=== PATIENT | male | born 1965 | race African-American/Black ===

== ENCOUNTER 2020-06-01 13:32 | Inpatient (IN) | payer OTHER ==
--- NOTE | 2020-06-01 16:23 | BHS.RME ---
Substance Use & Tx History - Substance Use History Alcohol Substance amount: 2pints of vodka,4 of 12 ozs of beer Frequency of use: Daily Substance route: Oral Date of Last Use: 06/01/20 Cocaine-Crack Substance amount: 100$ Frequency of use: Daily Substance route: Smoking Date of Last Use: 06/01/20 Marijuana/Hashish Substance amount: 10$ Frequency of use: Once a month Substance route: Smoking Date of Last Use: 06/01/20 - Last Treatment Date of last treatment: 2015 in [place] Where was last treatment: Detox Physical/Psych/Mental Status - Behavior Eye Contact: Normal - Cooperativeness Cooperativeness: Cooperative - Thinking Thought Processes: Logical Thought content: Future oriented - Physical Health Problems Is patient presently having any pain?: No Does patient presently have any injuries (include location): No Does patient currently have a fever: No CIWA Nausea/Vomitin Muscle Tremors: 3 Anxiety: 3 Agitation: 3 Paroxysmal Sweats: No Perspiration Orientation: 0-Oriented Tacttile Disturbances: 1-Very Mild Itch/Numbness Auditory Disturbances: 0-None Visual Disturbances: 0-None Headache: 2-Mild CIWA-Ar Total Score: 14
--- NOTE | 2020-06-01 16:34 | HP ---
CIWA Score Nausea/Vomitin Muscle Tremors: 3 Anxiety: 3 Agitation: 3 Paroxysmal Sweats: No Perspiration Orientation: 0-Oriented Tacttile Disturbances: 1-Very Mild Itch/Numbness Auditory Disturbances: 0-None Visual Disturbances: 0-None Headache: 2-Mild CIWA-Ar Total Score: 14 - Admission Criteria OASAS Guidelines: Admission for Medically Managed Detox: Requires at least one of the followin. CIWA greater than 12 2. Seizures within the past 24 hours 3. Delirium tremens within the past 24 hours 4. Hallucinations within the past 24 hours 5. Acute intervention needed for co occurring medical disorder 6. Acute intervention needed for co occurring psychiatric disorder 7. Severe withdrawal that cannot be handled at a lower level of care (continued vomiting, continued diarrhea, abnormal vital signs) requiring intravenous medication and/or fluids 8. Admitting History and Physical - Admission Chief Complaint: i need help to stop drinking alcohol and drug History of Present Illness: this 54 years oldmale with alcohol,cocaine,marijuana dependence seeking detox, withdrawal symptom,first time to this facility History Source: Patient Limitations to Obtaining History: No Limitations - Past Surgical History Past Surgical History: Yes: None - Smoking History Smoking history: Current every day smoker Have you smoked in the past 12 months: Yes Aproximately how many cigarettes per day: 10 - Alcohol/Substance Use Hx Alcohol Use: Yes History of Substance Use: reports: Cocaine, Marijuana Date of Last Use: 06/01/20 - Social History Usual Living Arrangement: Yes: With Spouse Do you think of yourself as: Straight/Heterosexual ADL: Support Services Occupation: unemployed now History of Recent Travel: No Other Social History: unemployed,no legal issue Admission ROS S - HPI Chief Complaint: i barbara help to stop drinking alcohol,cocaine and drugs Allergies/Adverse Reactions: Allergies Allergy/AdvReac Type Severity Reaction Status Date / Time No Known Allergies Allergy Verified 06/01/20 16:43 History of Present Illness: this 54 years old male with alcohol,cocaine,marijuana dependence seeking detox,withdrawal symptom first time to this facility last detox 6 years ago in [place] nicotine dependence unemployed,positive eye home health aid,no legal issue longest sobriety 2 year plan for iop,aa meeting Exam Limitations: No Limitations - Ebola screening Have you traveled outside of the country in the last 21 days: No Have you had contact with anyone from an Ebola affected area: No Have you been sick,other than usual withdrawal symptoms: No Do you have a fever: No - Review of Systems Constitutional: Loss of Appetite, Malaise, Night Sweats, Changes in sleep EENT: reports: Tearing, Nose Congestion Respiratory: reports: No Symptoms reported Cardiac: reports: No Symptoms Reported GI: reports: Nausea, Vomiting, Abdominal cramping : reports: No Symptoms Reported Musculoskeletal: reports: Back Pain, Muscle Pain Integumentary: reports: Dryness Neuro: reports: Tremors Endocrine: reports: No Symptoms Reported Hematology: reports: No Symptoms Reported Psychiatric: reports: No Sypmtoms Reported, Judgement Intact, Mood/Affect Appropiate, Orientated x3 Other Systems: Reviewed and Negative Patient History - Patient Medical History Hx Anemia: No Hx Asthma: No Hx Chronic Obstructive Pulmonary Disease (COPD): No Hx Cancer: No Hx Cardiac Disorders: No Hx Congestive Heart Failure: No Hx Hypertension: No Hx Hypercholesterolemia: No Hx Pacemaker: No HX Cerebrovascular Accident: No Hx Seizures: No Hx Dementia: No Hx Diabetes: No Hx Gastrointestinal Disorders: No Hx Liver Disease: No Hx Genitourinary Disorders: No Hx Sexually Transmitted Disorders: No Hx Renal Disease (ESRD): No Hx Thyroid Disease: No Hx Human Immunodeficiency Virus (HIV): No (last 04/2020 negative) Hx Hepatitis C: No Hx Depression: No Hx Suicide Attempt: No Hx Bipolar Disorder: No Hx Schizophrenia: No Other Medical History: no suicidal,no homicidal - Patient Surgical History Past Surgical History: No - PPD History Previous Implant?: Yes Documented Results: Negative w/o proof Implanted On Prior R Admission?: No PPD to be Administered?: Yes - Smoking Cessation Smoking history: Current every day smoker Have you smoked in the past 12 months: Yes Aproximately how many cigarettes per day: 10 Cigars Per Day: 0 Hx Chewing Tobacco Use: No Initiated information on smoking cessation: Yes 'Breaking Loose' booklet given: 06/01/20 - Substance & Tx. History Hx Alcohol Use: Yes Hx Substance Use: Yes Substance Use Type: Alcohol, Cocaine, Marijuana Hx Substance Use Treatment: Yes (in [place] 6 years ago) - Substances abused Alcohol Substance route: Oral Frequency: Daily Amount used: 2pints of vodka/2 of 12 ozs of beer Age of first use: 23 Date of last use: 06/01/20 Crack Substance route: Smoking Frequency: Daily Amount used: 100$ Age of first use: 23 Date of last use: 06/01/20 Marijuana/Hashish Substance route: Smoking Frequency: 1-3 times last 30 days Amount used: 10$ Age of first use: 23 Date of last use: 05/30/20 Admission Physical Exam [facility] - Vital Signs Vital Signs: t97.9,p 85,r 18,bp 101/64 pulse ox 98 - Physical General Appearance: Yes: Moderate Distress, Tremorous, Irritable, Anxious HEENTM: Yes: Normal ENT Inspection, CARRI, Pharynx Normal Respiratory: Yes: Within Normal Limits, Lungs Clear, Normal Breath Sounds Neck: Yes: Within Normal Limits, Supple, Trachea in good position Breast: Yes: Within Normal Limits Cardiology: Yes: Within Normal Limits, Regular Rhythm, Regular Rate, S1, S2 Abdominal: Yes: Within Normal Limits, Normal Bowel Sounds, Non Tender, Flat, Soft Genitourinary: Yes: Within Normal Limits Back: Yes: Muscle Spasm Musculoskeletal: Yes: Back pain, Muscle Pain Extremities: Yes: Tremors Neurological: Yes: asbestos wire finisher II-XII NML intact, Fully Oriented, Alert, Motor Strength 5/5 Integumentary: Yes: Dry Lymphatic: Yes: Within Normal Limits - Diagnostic (1) Alcohol dependence with uncomplicated withdrawal Current Visit: Yes Status: Acute (2) Cocaine dependence Current Visit: Yes Status: Acute (3) Cannabis abuse Current Visit: Yes Status: Acute (4) Nicotine dependence Current Visit: Yes Status: Acute Cleared for Admission [facility] - Detox or Rehab [facility] Level of Care: Medically Managed Detox Regimen/Protocol: Librium Inpatient Rehab Admission - Rehab Decision to Admit Inpatient rehab admission?: No
[2020-06-01] MEDS ORDERED: ACETAMINOPHEN 325 MG TABLET (FP) PO PRN ×2 (16:43)
[2020-06-01] MEDS ORDERED: ONDANSETRON *ODT* 4 MG TABLET SL ONE (16:43)
[2020-06-01] MEDS ORDERED: METHOCARBAMOL 500 MG TABLET PO PRN (16:43)
[2020-06-01] MEDS ORDERED: chlordiazePOXIDE HCL 25 MG CAPSULE PO PRN (16:43)
[2020-06-01] MEDS ORDERED: MAGNESIUM HYDROX 2400MG/30ML ORAL SUSPENSION 30 ML CUP PO PRN (16:43)
[2020-06-01] MEDS ORDERED: BISMUTH SUBSALICYLATE 524 MG/30 ML UD PO PRN (16:43)
[2020-06-01] MEDS ORDERED: MAG HYDROX/AL HYDROX/SIMETH 30 ML UNIT-DOSE CUP PO PRN (16:43)
[2020-06-01] MEDS ORDERED: MAGNESIUM CITRATE 300 ML BOTTLE PO PRN (16:43)
[2020-06-01] MEDS ORDERED: NICOTINE POLACRILEX 2 MG GUM BUC PRN (16:43)
[2020-06-01] MEDS ORDERED: MENTHOL/PHENOL 1 EACH UD MM PRN (16:43)
[2020-06-01 16:59] VITALS: BMI 24.3
[2020-06-01] MEDS ORDERED: TUBERCULIN PPD 5 TU/0.1ML VIAL ID ONE (17:59)
[2020-06-01] MEDS: hydrOXYzine PAMOATE 25 MG CAPSULE (FP) PO SCH ×2 (18:07→22:17)
[2020-06-01] MEDS ORDERED: cloNIDine HCL 0.1 MG TABLET PO ONE (18:33)
[2020-06-01] MEDS: THIAMINE HCL 100 MG TABLET (FP) PO SCH (22:17)
[2020-06-01] MEDS: MELATONIN 5 MG TABLETS PO SCH (22:17)
[2020-06-01] MEDS: chlordiazePOXIDE HCL 25 MG CAPSULE PO SCH (22:17)
[2020-06-02] MEDS: hydrOXYzine PAMOATE 25 MG CAPSULE (FP) PO SCH ×5 (06:48→22:17)
[2020-06-02] MEDS: chlordiazePOXIDE HCL 25 MG CAPSULE PO SCH ×4 (06:48→22:17)
[2020-06-02] MEDS: NICOTINE 21 MG/24 HOURS TOPICAL PATCH TD SCH (10:38)
[2020-06-02] MEDS: NICOTINE 7 MG/24 HOURS TOPICAL PATCH TD SCH (10:38)
[2020-06-02] MEDS: PRENATAL VITAMINS W/ FOLIC ACID TABLET (FP) PO SCH (10:38)
[2020-06-02 12:03] LABS: HEMATOCRIT 42.5 % (35.4-49); HEMOGLOBIN 14.1 GM/dL (11.7-16.9); MCH 31.1 pg (25.7-33.7); MCHC 33.2 g/dl (32.0-35.9); MEAN CELL VOLUME 93.5 fl (80-96); MEAN PLT VOLUME 8.3 fl (7.5-11.1); PLATELET COUNT 267 K/MM3 (134-434); RBC 4.55 M/mm3 (4.00-5.60); WHITE BLOOD COUNT 6.8 K/mm3 (4.0-10.0)
[2020-06-02 12:15] LABS: ALBUMIN 2.9 g/dl (3.4-5.0); BILIRUBIN,TOTAL 0.6 mg/dL (0.2-1); BLOOD UREA NITROGEN 10.5 mg/dL (7-18); CALCIUM 8.7 mg/dL (8.5-10.1); CREATININE 1.1 mg/dL (0.55-1.3); POTASSIUM 4.1 mmol/L (3.5-5.1)
[2020-06-02 12:23] LABS: SICKLE CELL SCREEN NEGATIVE (NEGATIVE)
--- NOTE | 2020-06-02 15:21 | PN ---
[facility] CIWA - CIWA Score Nausea/Vomitin-Mild Nausea/No Vomiting Muscle Tremors: 2 Anxiety: 3 Agitation: 2 Paroxysmal Sweats: 3 Orientation: 0-Oriented Tacttile Disturbances: 0-None Auditory Disturbances: 0-None Visual Disturbances: 0-None Headache: 0-None Present CIWA-Ar Total Score: 11 [facility] Progress Note (SOAP) Subjective: Fatigue, interrupted sleep Objective: 06/02/20 15:12 Last Vital Signs Temp Pulse Resp BP Pulse Ox 97.8 F 73 18 135/84 98 06/02/20 12:50 06/02/20 12:50 06/02/20 12:50 06/02/20 12:50 06/02/20 12:50 Elevated b/p noted, denies htn Laboratory Tests 06/02/20 06/02/20 06/02/20 07:25 07:25 07:25 WBC 6.8 RBC 4.55 Hgb 14.1 Hct 42.5 MCV 93.5 MCH 31.1 MCHC 33.2 RDW 14.0 Plt Count 267 MPV 8.3 Sickle Cell Screen Negative Sodium 136 Potassium 4.1 Chloride 102 Carbon Dioxide 30 Anion Gap 5 L BUN 10.5 Creatinine 1.1 Est GFR (CKD-EPI)AfAm 88.36 Est GFR (CKD-EPI)NonAf 76.24 Random Glucose 384 H Calcium 8.7 Total Bilirubin 0.6 AST 8 L ALT 13 Alkaline Phosphatase 75 Total Protein 6.0 L Albumin 2.9 L Syphilis Serology Reactive A* RPR Titer 06/02/20 07:25 WBC RBC Hgb Hct MCV MCH MCHC RDW Plt Count MPV Sickle Cell Screen Sodium Potassium Chloride Carbon Dioxide Anion Gap BUN Creatinine Est GFR (CKD-EPI)AfAm Est GFR (CKD-EPI)NonAf Random Glucose Calcium Total Bilirubin AST ALT Alkaline Phosphatase Total Protein Albumin Syphilis Serology RPR Titer Reactive 1:1 H Labs reviewed: serum glucose 384 (high), albumin 2.9 (low), RPR Reactive 1:1 Assessment: 06/02/20 15:14 Withdrawal sxs Noted with hyperglycemia, hypoalbuminemia and abnormal RPR test result Plan: Continue detox Encourage PO water intake Hyperglycemia: repeat fasting glucose, send A1c, start FS glucose TID AC with SS insulin coverage, change ensure to glucerna bid, consider diabetic diet if patient allows Hypoalbuminemia: encourage diet Abnormal RPR test result: patient uncooperative at this time, stating he wants to sleep. Need to follow up with patient when he's cooperative
[2020-06-02] MEDS: INSULIN SLIDING SCALE (NOVOLOG) 1 VIAL SQ SCH (17:11)
[2020-06-02 21:49] LABS: URINE APPEARANCE CLEAR; URINE BILIRUBIN NEGATIVE (NEGATIVE); URINE COLOR YELLOW; URINE GLUCOSE (UA) 3+ (NEGATIVE); URINE KETONE NEGATIVE (NEGATIVE); URINE LEUK ESTERASE NEGATIVE (NEGATIVE); URINE NITRITE NEGATIVE (NEGATIVE); URINE PROTEIN NEGATIVE (NEGATIVE); URINE UROBILINOGEN 0.2 mg/dL (0.2-1.0)
[2020-06-02] MEDS: THIAMINE HCL 100 MG TABLET (FP) PO SCH (22:17)
[2020-06-02] MEDS: MELATONIN 5 MG TABLETS PO SCH (22:17)
[2020-06-02] MEDS ORDERED: INSULIN (NOVOLOG) ASPART 100 UNITS/ML 10ML VIAL SQ ONE (22:32)
--- NOTE | 2020-06-02 22:38 | PN ---
[facility] Progress Note Note: Patient's blood sugar is 507mg/dL. Patient is asymptomatic. Vital Signs Temperature 97.7 F 06/02/20 20:47 Pulse Rate 90 06/02/20 20:47 Respiratory Rate 18 06/02/20 20:47 Blood Pressure 131/70 06/02/20 20:47 O2 Sat by Pulse Oximetry (%) 97 06/02/20 20:47 06/02/20 06/02/20 06/02/20 07:25 07:25 07:25 WBC 6.8 RBC 4.55 Hgb 14.1 Hct 42.5 MCV 93.5 MCH 31.1 MCHC 33.2 RDW 14.0 Plt Count 267 MPV 8.3 Sickle Cell Screen Negative Sodium 136 Potassium 4.1 Chloride 102 Carbon Dioxide 30 Anion Gap 5 L BUN 10.5 Creatinine 1.1 Est GFR (CKD-EPI)AfAm 88.36 Est GFR (CKD-EPI)NonAf 76.24 POC Glucometer Random Glucose 384 H Calcium 8.7 Total Bilirubin 0.6 AST 8 L ALT 13 Alkaline Phosphatase 75 Total Protein 6.0 L Albumin 2.9 L Urine Color Urine Appearance Urine pH Ur Specific [place] Urine Protein Urine Glucose (UA) Urine Ketones Urine Blood Urine Nitrite Urine Bilirubin Urine Urobilinogen Ur Leukocyte Esterase Syphilis Serology Reactive A* RPR Titer 06/02/20 06/02/20 06/02/20 07:25 17:09 17:14 WBC RBC Hgb Hct MCV MCH MCHC RDW Plt Count MPV Sickle Cell Screen Sodium Potassium Chloride Carbon Dioxide Anion Gap BUN Creatinine Est GFR (CKD-EPI)AfAm Est GFR (CKD-EPI)NonAf POC Glucometer > 600 Random Glucose Calcium Total Bilirubin AST ALT Alkaline Phosphatase Total Protein Albumin Urine Color Yellow Urine Appearance Clear Urine pH 6.0 Ur Specific [place] 1.025 Urine Protein Negative Urine Glucose (UA) 3+ H Urine Ketones Negative Urine Blood Negative Urine Nitrite Negative Urine Bilirubin Negative Urine Urobilinogen 0.2 Ur Leukocyte Esterase Negative Syphilis Serology RPR Titer Reactive 1:1 H 06/02/20 06/02/20 20:52 22:26 WBC RBC Hgb Hct MCV MCH MCHC RDW Plt Count MPV Sickle Cell Screen Sodium Potassium Chloride Carbon Dioxide Anion Gap BUN Creatinine Est GFR (CKD-EPI)AfAm Est GFR (CKD-EPI)NonAf POC Glucometer [phone] Random Glucose Calcium Total Bilirubin AST ALT Alkaline Phosphatase Total Protein Albumin Urine Color Urine Appearance Urine pH Ur Specific [place] Urine Protein Urine Glucose (UA) Urine Ketones Urine Blood Urine Nitrite Urine Bilirubin Urine Urobilinogen Ur Leukocyte Esterase Syphilis Serology RPR Titer Action: Insulin Novolog 8 units SQ ordered
[2020-06-03] MEDS: chlordiazePOXIDE HCL 25 MG CAPSULE PO SCH ×4 (07:05→22:12)
[2020-06-03] MEDS: hydrOXYzine PAMOATE 25 MG CAPSULE (FP) PO SCH ×5 (07:05→22:12)
[2020-06-03] MEDS ORDERED: INSULIN (NOVOLOG) ASPART 100 UNITS/ML 10ML VIAL ONE ×2 (07:32→11:49)
[2020-06-03] MEDS: INSULIN SLIDING SCALE (NOVOLOG) 1 VIAL SQ SCH ×2 (08:01→11:44)
--- NOTE | 2020-06-03 09:30 | EKG ---
Test Reason : Blood Pressure : / mmHG Vent. Rate : 063 BPM Atrial Rate : 063 BPM P-R Int : 138 ms QRS Dur : 096 ms QT Int : 426 ms P-R-T Axes : 044 -34 -11 degrees QTc Int : 435 ms SINUS RHYTHM WITH PREMATURE ATRIAL COMPLEXES LEFT AXIS DEVIATION MODERATE VOLTAGE CRITERIA FOR LVH, MAY BE NORMAL VARIANT Nonspecific T changes ABNORMAL ECG NO PREVIOUS ECGS AVAILABLE Confirmed by Shannan Kapoor ([id number]) on 06/03/2020 9:30:21 AM Referred By: Confirmed By:Shannan Kapoor
[2020-06-03] MEDS: NICOTINE 21 MG/24 HOURS TOPICAL PATCH TD SCH (11:07)
[2020-06-03] MEDS: NICOTINE 7 MG/24 HOURS TOPICAL PATCH TD SCH (11:07)
[2020-06-03] MEDS: PRENATAL VITAMINS W/ FOLIC ACID TABLET (FP) PO SCH (11:09)
--- NOTE | 2020-06-03 14:04 | PN ---
S CIWA - CIWA Score Nausea/Vomitin-No Nausea/No Vomiting Muscle Tremors: 4-Moderate,w/Arms Extend Anxiety: 4-Mod. Anxious/Guarded Agitation: 2 Paroxysmal Sweats: 2 Orientation: 0-Oriented Tacttile Disturbances: 0-None Auditory Disturbances: 0-None Visual Disturbances: 0-None Headache: 0-None Present CIWA-Ar Total Score: 12 [facility] Progress Note (SOAP) Subjective: Reports "Am better" but c/o: sweats shakes anxiety Objective: 06/03/20 14:01 Vital Signs - 24 hr 06/02/20 06/02/20 06/03/20 17:11 20:47 06:14 Temperature 97.1 F L 97.7 F 97.8 F Pulse Rate 74 90 79 Respiratory 18 18 18 Rate Blood Pressure 138/81 131/70 123/91 O2 Sat by Pulse 97 96 Oximetry (%) 06/03/20 09:53 Temperature 98.4 F Pulse Rate 80 Respiratory 16 Rate Blood Pressure 113/80 O2 Sat by Pulse 98 Oximetry (%) Laboratory Tests 06/02/20 06/02/20 06/02/20 07:25 07:25 07:25 WBC 6.8 RBC 4.55 Hgb 14.1 Hct 42.5 MCV 93.5 MCH 31.1 MCHC 33.2 RDW 14.0 Plt Count 267 MPV 8.3 Sickle Cell Screen Negative Sodium 136 Potassium 4.1 Chloride 102 Carbon Dioxide 30 Anion Gap 5 L BUN 10.5 Creatinine 1.1 Est GFR (CKD-EPI)AfAm 88.36 Est GFR (CKD-EPI)NonAf 76.24 POC Glucometer Random Glucose 384 H Fasting Glucose Hemoglobin A1c % Calcium 8.7 Total Bilirubin 0.6 AST 8 L ALT 13 Alkaline Phosphatase 75 Total Protein 6.0 L Albumin 2.9 L Urine Color Urine Appearance Urine pH Ur Specific [place] Urine Protein Urine Glucose (UA) Urine Ketones Urine Blood Urine Nitrite Urine Bilirubin Urine Urobilinogen Ur Leukocyte Esterase Syphilis Serology Reactive A* RPR Titer 06/02/20 06/02/20 06/02/20 07:25 17:09 17:14 WBC RBC Hgb Hct MCV MCH MCHC RDW Plt Count MPV Sickle Cell Screen Sodium Potassium Chloride Carbon Dioxide Anion Gap BUN Creatinine Est GFR (CKD-EPI)AfAm Est GFR (CKD-EPI)NonAf POC Glucometer > 600 Random Glucose Fasting Glucose Hemoglobin A1c % Calcium Total Bilirubin AST ALT Alkaline Phosphatase Total Protein Albumin Urine Color Yellow Urine Appearance Clear Urine pH 6.0 Ur Specific [place] 1.025 Urine Protein Negative Urine Glucose (UA) 3+ H Urine Ketones Negative Urine Blood Negative Urine Nitrite Negative Urine Bilirubin Negative Urine Urobilinogen 0.2 Ur Leukocyte Esterase Negative Syphilis Serology RPR Titer Reactive 1:1 H 06/02/20 06/02/20 06/03/20 20:52 22:26 07:04 WBC RBC Hgb Hct MCV MCH MCHC RDW Plt Count MPV Sickle Cell Screen Sodium Potassium Chloride Carbon Dioxide Anion Gap BUN Creatinine Est GFR (CKD-EPI)AfAm Est GFR (CKD-EPI)NonAf POC Glucometer [phone] Random Glucose Fasting Glucose Hemoglobin A1c % Calcium Total Bilirubin AST ALT Alkaline Phosphatase Total Protein Albumin Urine Color Urine Appearance Urine pH Ur Specific [place] Urine Protein Urine Glucose (UA) Urine Ketones Urine Blood Urine Nitrite Urine Bilirubin Urine Urobilinogen Ur Leukocyte Esterase Syphilis Serology RPR Titer 06/03/20 06/03/20 08:15 08:15 WBC RBC Hgb Hct MCV MCH MCHC RDW Plt Count MPV Sickle Cell Screen Sodium Potassium Chloride Carbon Dioxide Anion Gap BUN Creatinine Est GFR (CKD-EPI)AfAm Est GFR (CKD-EPI)NonAf POC Glucometer Random Glucose Fasting Glucose 461 H* Hemoglobin A1c % 13.9 H Calcium Total Bilirubin AST ALT Alkaline Phosphatase Total Protein Albumin Urine Color Urine Appearance Urine pH Ur Specific [place] Urine Protein Urine Glucose (UA) Urine Ketones Urine Blood Urine Nitrite Urine Bilirubin Urine Urobilinogen Ur Leukocyte Esterase Syphilis Serology RPR Titer Covid-19 result pending HgbA1C is 13.9 (Pt is a poor historian and denied all Past medical Hx RPR 1:1 Pt is new to this facility and uncooperative with staff when asked about past infection. Alert o x 3 nad oob ambulating with steady gait Assessment: 06/03/20 14:03 withdrawal sx poor historian poor self health management skills Plan: cont detox increase po fluids maintain safety Change BGM ACHS monitoring/continue sliding scale Dietary consult follow up with pt and Hx of RPR and primary care provider.
[2020-06-03] MEDS: IBUPROFEN 400 MG TABLET (FP) PO PRN (15:43)
[2020-06-03] MEDS ORDERED: INSULIN SLIDING SCALE (NOVOLOG) 1 VIAL SQ SCH (16:30)
[2020-06-03] MEDS ORDERED: INSULIN (NOVOLOG) ASPART 100 UNITS/ML 10ML VIAL SQ ONE (17:01)
[2020-06-03] MEDS ORDERED: cloNIDine HCL 0.1 MG TABLET PO ONE (21:58)
[2020-06-03] MEDS ORDERED: INSULIN (LEVEMIR) 100 UNITS/ML UNITS SQ SCH (22:00)
[2020-06-03] MEDS: THIAMINE HCL 100 MG TABLET (FP) PO SCH (22:11)
[2020-06-03] MEDS: MELATONIN 5 MG TABLETS PO SCH (22:12)
[2020-06-04] MEDS ORDERED: chlordiazePOXIDE HCL 10 MG CAPSULE PO PRN
[2020-06-04] MEDS: chlordiazePOXIDE HCL 10 MG CAPSULE PO SCH ×4 (06:37→22:01)
[2020-06-04] MEDS: hydrOXYzine PAMOATE 25 MG CAPSULE (FP) PO SCH ×5 (06:37→21:44)
[2020-06-04] MEDS ORDERED: INSULIN (NOVOLOG) ASPART 100 UNITS/ML 10ML VIAL ONE ×4 (06:39→22:37)
[2020-06-04] MEDS ORDERED: INSULIN SLIDING SCALE (NOVOLOG) 1 VIAL SQ SCH (07:00)
--- NOTE | 2020-06-04 09:43 | PN ---
S CIWA - CIWA Score Nausea/Vomitin-No Nausea/No Vomiting Muscle Tremors: 3 Anxiety: 2 Agitation: 0-Normal Activity Paroxysmal Sweats: No Perspiration Orientation: 0-Oriented Tacttile Disturbances: 0-None Auditory Disturbances: 0-None Visual Disturbances: 0-None Headache: 0-None Present CIWA-Ar Total Score: 5 [facility] Progress Note (SOAP) Subjective: Reports decreased withdrawal sx, medication effective. Slight anxiety Objective: 06/04/20 09:40 Vital Signs - 24 hr 06/03/20 06/03/20 06/03/20 09:53 12:49 21:49 Temperature 98.4 F 98.2 F 98.0 F Pulse Rate 80 82 84 Respiratory 16 18 18 Rate Blood Pressure 113/80 112/70 142/107 H O2 Sat by Pulse 98 95 97 Oximetry (%) 06/03/20 06/04/20 23:53 06:19 Temperature 98.4 F Pulse Rate 73 74 Respiratory 18 Rate Blood Pressure 131/79 121/84 O2 Sat by Pulse 96 Oximetry (%) Laboratory Tests 06/01/20 06/02/20 06/02/20 23:40 07:25 07:25 WBC 6.8 RBC 4.55 Hgb 14.1 Hct 42.5 MCV 93.5 MCH 31.1 MCHC 33.2 RDW 14.0 Plt Count 267 MPV 8.3 Sickle Cell Screen Negative Sodium Potassium Chloride Carbon Dioxide Anion Gap BUN Creatinine Est GFR (CKD-EPI)AfAm Est GFR (CKD-EPI)NonAf POC Glucometer Random Glucose Fasting Glucose Hemoglobin A1c % Calcium Total Bilirubin AST ALT Alkaline Phosphatase Total Protein Albumin Urine Color Urine Appearance Urine pH Ur Specific [place] Urine Protein Urine Glucose (UA) Urine Ketones Urine Blood Urine Nitrite Urine Bilirubin Urine Urobilinogen Ur Leukocyte Esterase Syphilis Serology Reactive A* RPR Titer COVID-19 (TIARA) Not detected 06/02/20 06/02/20 06/02/20 07:25 07:25 17:09 WBC RBC Hgb Hct MCV MCH MCHC RDW Plt Count MPV Sickle Cell Screen Sodium 136 Potassium 4.1 Chloride 102 Carbon Dioxide 30 Anion Gap 5 L BUN 10.5 Creatinine 1.1 Est GFR (CKD-EPI)AfAm 88.36 Est GFR (CKD-EPI)NonAf 76.24 POC Glucometer > 600 Random Glucose 384 H Fasting Glucose Hemoglobin A1c % Calcium 8.7 Total Bilirubin 0.6 AST 8 L ALT 13 Alkaline Phosphatase 75 Total Protein 6.0 L Albumin 2.9 L Urine Color Urine Appearance Urine pH Ur Specific [place] Urine Protein Urine Glucose (UA) Urine Ketones Urine Blood Urine Nitrite Urine Bilirubin Urine Urobilinogen Ur Leukocyte Esterase Syphilis Serology RPR Titer Reactive 1:1 H COVID-19 (TIARA) 06/02/20 06/02/20 06/02/20 17:14 20:52 22:26 WBC RBC Hgb Hct MCV MCH MCHC RDW Plt Count MPV Sickle Cell Screen Sodium Potassium Chloride Carbon Dioxide Anion Gap BUN Creatinine Est GFR (CKD-EPI)AfAm Est GFR (CKD-EPI)NonAf POC Glucometer [phone] Random Glucose Fasting Glucose Hemoglobin A1c % Calcium Total Bilirubin AST ALT Alkaline Phosphatase Total Protein Albumin Urine Color Yellow Urine Appearance Clear Urine pH 6.0 Ur Specific [place] 1.025 Urine Protein Negative Urine Glucose (UA) 3+ H Urine Ketones Negative Urine Blood Negative Urine Nitrite Negative Urine Bilirubin Negative Urine Urobilinogen 0.2 Ur Leukocyte Esterase Negative Syphilis Serology RPR Titer COVID-19 (TIARA) 06/03/20 06/03/20 06/03/20 07:04 08:15 08:15 WBC RBC Hgb Hct MCV MCH MCHC RDW Plt Count MPV Sickle Cell Screen Sodium Potassium Chloride Carbon Dioxide Anion Gap BUN Creatinine Est GFR (CKD-EPI)AfAm Est GFR (CKD-EPI)NonAf POC Glucometer 467 Random Glucose Fasting Glucose 461 H* Hemoglobin A1c % 13.9 H Calcium Total Bilirubin AST ALT Alkaline Phosphatase Total Protein Albumin Urine Color Urine Appearance Urine pH Ur Specific [place] Urine Protein Urine Glucose (UA) Urine Ketones Urine Blood Urine Nitrite Urine Bilirubin Urine Urobilinogen Ur Leukocyte Esterase Syphilis Serology RPR Titer COVID-19 (TIARA) 06/03/20 06/03/20 06/04/20 16:52 21:05 06:36 WBC RBC Hgb Hct MCV MCH MCHC RDW Plt Count MPV Sickle Cell Screen Sodium Potassium Chloride Carbon Dioxide Anion Gap BUN Creatinine Est GFR (CKD-EPI)AfAm Est GFR (CKD-EPI)NonAf POC Glucometer [phone] Random Glucose Fasting Glucose Hemoglobin A1c % Calcium Total Bilirubin AST ALT Alkaline Phosphatase Total Protein Albumin Urine Color Urine Appearance Urine pH Ur Specific [place] Urine Protein Urine Glucose (UA) Urine Ketones Urine Blood Urine Nitrite Urine Bilirubin Urine Urobilinogen Ur Leukocyte Esterase Syphilis Serology RPR Titer COVID-19 (TIARA) Today pt reports he now remembers was "treated for syphilis in the past, years ago". Unable to recollect exact year and location. Still maintains has never been dx with DM. Assessment: 06/04/20 19:38 mild withdrawal sx uncontrolled DM Plan: cont detox increase po fluids maintain safety D/w pt about seeing primary care again which he reports he has been to a doctor in [place] and the need to follow up after detox treatment.
[2020-06-04 10:26] LABS: BLOOD UREA NITROGEN 17.1 mg/dL (7-18); CALCIUM 9.4 mg/dL (8.5-10.1); CREATININE 1.2 mg/dL (0.55-1.3); POTASSIUM 4.2 mmol/L (3.5-5.1)
[2020-06-04] MEDS: NICOTINE 21 MG/24 HOURS TOPICAL PATCH TD SCH (10:38)
[2020-06-04] MEDS: PRENATAL VITAMINS W/ FOLIC ACID TABLET (FP) PO SCH (10:38)
[2020-06-04] MEDS: NICOTINE 7 MG/24 HOURS TOPICAL PATCH TD SCH (10:38)
[2020-06-04] MEDS: INSULIN SLIDING SCALE (NOVOLOG) 1 VIAL SQ SCH ×3 (11:53→21:42)
[2020-06-04] MEDS: IBUPROFEN 400 MG TABLET (FP) PO PRN (16:57)
[2020-06-04] MEDS ORDERED: INSULIN (LEVEMIR) 100 UNITS/ML UNITS SQ SCH ×2 (17:52→22:00)
[2020-06-04] MEDS: THIAMINE HCL 100 MG TABLET (FP) PO SCH (21:44)
[2020-06-04] MEDS: MELATONIN 5 MG TABLETS PO SCH (21:44)
[2020-06-05] MEDS ORDERED: chlordiazePOXIDE HCL 10 MG CAPSULE PO SCH (05:00)
[2020-06-05] MEDS: hydrOXYzine PAMOATE 25 MG CAPSULE (FP) PO SCH ×2 (06:35→10:00)
[2020-06-05] MEDS: INSULIN SLIDING SCALE (NOVOLOG) 1 VIAL SQ SCH (06:38)
[2020-06-05] MEDS ORDERED: INSULIN (NOVOLOG) ASPART 100 UNITS/ML 10ML VIAL ONE (06:38)
--- NOTE | 2020-06-05 08:59 | DS ---
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 Extensive discussion with patient re: his blood sugar and the need to follow up with his PCP and Director Index after discharge today. Pt now reports he has a PCP at [facility] on [address] [place] [address]. Pt met with counselor, Ms Adan Jerez and has been referred to [place], [place]. 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 Diabetic teaching and instruction for proper use of insulin pen provided to patient. Pertinent Past History: HTN(on norvasc-noncompliant) DM(pt denies on admission0 - Physical Exam Results Vital Signs: Vital Signs Temperature 98.2 F 06/05/20 06:00 Pulse Rate 79 06/05/20 06:00 Respiratory Rate 18 06/05/20 06:00 Blood Pressure 147/94 06/05/20 06:00 O2 Sat by Pulse Oximetry (%) 97 06/05/20 06:00 alert o x 3 nad oob ambulating with steady gait cardiac:s1 s2,rrr lungs:ctab abdomen:soft,+bs,nt,nd extremities:no edema,skin intact. Pertinent Admission Physical Exam Findings: Laboratory Tests 06/01/20 06/02/20 06/02/20 23:40 07:25 07:25 WBC 6.8 RBC 4.55 Hgb 14.1 Hct 42.5 MCV 93.5 MCH 31.1 MCHC 33.2 RDW 14.0 Plt Count 267 MPV 8.3 Sickle Cell Screen Negative Sodium Potassium Chloride Carbon Dioxide Anion Gap BUN Creatinine Est GFR (CKD-EPI)AfAm Est GFR (CKD-EPI)NonAf POC Glucometer Random Glucose Fasting Glucose Hemoglobin A1c % Calcium Total Bilirubin AST ALT Alkaline Phosphatase Total Protein Albumin Beta-Hydroxybutyrate Urine Color Urine Appearance Urine pH Ur Specific [place] Urine Protein Urine Glucose (UA) Urine Ketones Urine Blood Urine Nitrite Urine Bilirubin Urine Urobilinogen Ur Leukocyte Esterase Syphilis Serology Reactive A* RPR Titer COVID-19 (TIARA) Not detected 06/02/20 06/02/20 06/02/20 07:25 07:25 17:09 WBC RBC Hgb Hct MCV MCH MCHC RDW Plt Count MPV Sickle Cell Screen Sodium 136 Potassium 4.1 Chloride 102 Carbon Dioxide 30 Anion Gap 5 L BUN 10.5 Creatinine 1.1 Est GFR (CKD-EPI)AfAm 88.36 Est GFR (CKD-EPI)NonAf 76.24 POC Glucometer > 600 Random Glucose 384 H Fasting Glucose Hemoglobin A1c % Calcium 8.7 Total Bilirubin 0.6 AST 8 L ALT 13 Alkaline Phosphatase 75 Total Protein 6.0 L Albumin 2.9 L Beta-Hydroxybutyrate Urine Color Urine Appearance Urine pH Ur Specific [place] Urine Protein Urine Glucose (UA) Urine Ketones Urine Blood Urine Nitrite Urine Bilirubin Urine Urobilinogen Ur Leukocyte Esterase Syphilis Serology RPR Titer Reactive 1:1 H COVID-19 (TIARA) 06/02/20 06/02/20 06/02/20 17:14 20:52 22:26 WBC RBC Hgb Hct MCV MCH MCHC RDW Plt Count MPV Sickle Cell Screen Sodium Potassium Chloride Carbon Dioxide Anion Gap BUN Creatinine Est GFR (CKD-EPI)AfAm Est GFR (CKD-EPI)NonAf POC Glucometer 426 507 Random Glucose Fasting Glucose Hemoglobin A1c % Calcium Total Bilirubin AST ALT Alkaline Phosphatase Total Protein Albumin Beta-Hydroxybutyrate Urine Color Yellow Urine Appearance Clear Urine pH 6.0 Ur Specific [place] 1.025 Urine Protein Negative Urine Glucose (UA) 3+ H Urine Ketones Negative Urine Blood Negative Urine Nitrite Negative Urine Bilirubin Negative Urine Urobilinogen 0.2 Ur Leukocyte Esterase Negative Syphilis Serology RPR Titer COVID-19 (TIARA) 06/03/20 06/03/20 06/03/20 07:04 08:15 08:15 WBC RBC Hgb Hct MCV MCH MCHC RDW Plt Count MPV Sickle Cell Screen Sodium Potassium Chloride Carbon Dioxide Anion Gap BUN Creatinine Est GFR (CKD-EPI)AfAm Est GFR (CKD-EPI)NonAf POC Glucometer 467 Random Glucose Fasting Glucose 461 H* Hemoglobin A1c % 13.9 H Calcium Total Bilirubin AST ALT Alkaline Phosphatase Total Protein Albumin Beta-Hydroxybutyrate Urine Color Urine Appearance Urine pH Ur Specific [place] Urine Protein Urine Glucose (UA) Urine Ketones Urine Blood Urine Nitrite Urine Bilirubin Urine Urobilinogen Ur Leukocyte Esterase Syphilis Serology RPR Titer COVID-19 (TIARA) 06/03/20 06/03/20 06/04/20 16:52 21:05 06:36 WBC RBC Hgb Hct MCV MCH MCHC RDW Plt Count MPV Sickle Cell Screen Sodium Potassium Chloride Carbon Dioxide Anion Gap BUN Creatinine Est GFR (CKD-EPI)AfAm Est GFR (CKD-EPI)NonAf POC Glucometer [phone] Random Glucose Fasting Glucose Hemoglobin A1c % Calcium Total Bilirubin AST ALT Alkaline Phosphatase Total Protein Albumin Beta-Hydroxybutyrate Urine Color Urine Appearance Urine pH Ur Specific [place] Urine Protein Urine Glucose (UA) Urine Ketones Urine Blood Urine Nitrite Urine Bilirubin Urine Urobilinogen Ur Leukocyte Esterase Syphilis Serology RPR Titer COVID-19 (TIARA) 06/04/20 06/04/20 06/04/20 07:50 11:48 16:52 WBC RBC Hgb Hct MCV MCH MCHC RDW Plt Count MPV Sickle Cell Screen Sodium 136 Potassium 4.2 Chloride 98 Carbon Dioxide 29 Anion Gap 8 BUN 17.1 Creatinine 1.2 Est GFR (CKD-EPI)AfAm 79.53 Est GFR (CKD-EPI)NonAf 68.62 POC Glucometer 463 470 Random Glucose 432 H* Fasting Glucose Hemoglobin A1c % Calcium 9.4 Total Bilirubin AST ALT Alkaline Phosphatase Total Protein Albumin Beta-Hydroxybutyrate 1.6 Urine Color Urine Appearance Urine pH Ur Specific [place] Urine Protein Urine Glucose (UA) Urine Ketones Urine Blood Urine Nitrite Urine Bilirubin Urine Urobilinogen Ur Leukocyte Esterase Syphilis Serology RPR Titer COVID-19 (TIARA) 06/04/20 06/05/20 21:41 06:34 WBC RBC Hgb Hct MCV MCH MCHC RDW Plt Count MPV Sickle Cell Screen Sodium Potassium Chloride Carbon Dioxide Anion Gap BUN Creatinine Est GFR (CKD-EPI)AfAm Est GFR (CKD-EPI)NonAf POC Glucometer 478 345 Random Glucose Fasting Glucose Hemoglobin A1c % Calcium Total Bilirubin AST ALT Alkaline Phosphatase Total Protein Albumin Beta-Hydroxybutyrate Urine Color Urine Appearance Urine pH Ur Specific [place] Urine Protein Urine Glucose (UA) Urine Ketones Urine Blood Urine Nitrite Urine Bilirubin Urine Urobilinogen Ur Leukocyte Esterase Syphilis Serology RPR Titer COVID-19 (TIARA) - Treatment Hospital Course: Detox Protocol Followed, Detoxed Safely, Responded well, Discharged Condition Good, Rehab Referral Accepted Patient has Accepted a Rehab Referral to: [place], [place] - Medication Discharge Medications: Ambulatory Orders Alcohol Antiseptic Pads [Alcohol Swabs] 1 each TP DAILY #30 med..pad 06/05/20 Amlodipine Besylate 10 mg PO DAILY #14 tablet 06/05/20 Insulin (Levemir) [Levemir Vial] 12 units SQ HS #1 units 06/05/20 Lancets 1 each MC DAILY #30 each 06/05/20 Miscellaneous Medical Supply [Glucometer Device] 1 each SQ ASDIR #1 kit 06/05/20 Miscellaneous Medical Supply [Glucometer Test Strips #100] 1 each SQ ASDIR #1 box 06/05/20 Pen Needle, Diabetic [1St Tier Unifine Pentips Plus] 1 each MC DAILY #30 dis.needle 06/05/20 - Diagnosis (1) History of hypertension Status: Chronic (2) Alcohol dependence with uncomplicated withdrawal Status: Acute (3) Cannabis abuse Status: Acute (4) Cocaine dependence Status: Acute Qualifiers: Substance use status: uncomplicated Qualified Code(s): F14.20 - Cocaine dependence, uncomplicated (5) Nicotine dependence Status: Acute Qualifiers: Nicotine product type: cigarettes Substance use status: in withdrawal Qualified Code(s): F17.213 - Nicotine dependence, cigarettes, with withdrawal (6) DM type 2 (diabetes mellitus, type 2) Status: Chronic Qualifiers: Diabetes mellitus long term care social worker insulin use: without nursing home use (7) History of noncompliance with medical treatment Status: Chronic - AMA Did Patient Leave Against Medical Advice: No
[2020-06-05] MEDS: PRENATAL VITAMINS W/ FOLIC ACID TABLET (FP) PO SCH (09:59)
[2020-06-05] MEDS: NICOTINE 7 MG/24 HOURS TOPICAL PATCH TD SCH (10:00)
[2020-06-05] MEDS: NICOTINE 21 MG/24 HOURS TOPICAL PATCH TD SCH (10:00)
[2020-06-05] MEDS ORDERED: amLODIPine BESYLATE 10 MG TABLET (FP) PO SCH (10:00)
[2020-06-05 10:47] VITALS: BP 123/82; PULSE 86; TEMP 97.7
[2020-06-06] MEDS ORDERED: chlordiazePOXIDE HCL 10 MG CAPSULE PO ONE (05:00)
== END 2020-06-05 10:10 | disposition home or self-care (01) | DRG 774 ==
LOC: YASAS 13:32 → Y5N DETOX 16:56
PROVIDERS: ADMIT Allergy & Immunology; ATTEND Allergy & Immunology
PROC: HZ2ZZZZ Detoxification Services for Substance Abuse Treatment (ICD-10-PCS; principal; 2020-06-01)
DX: F10.230 Alcohol dependence with withdrawal, uncomplicated (principal); F14.20 Cocaine dependence, uncomplicated; F12.10 Cannabis abuse, uncomplicated; F17.210 Nicotine dependence, cigarettes, uncomplicated; E88.09 Other disorders of plasma-protein metabolism, not elsewhere classified; I10 Essential (primary) hypertension; E11.65 Type 2 diabetes mellitus with hyperglycemia; Z79.84 Long term (current) use of oral hypoglycemic drugs; Z91.19 Patient's noncompliance with other medical treatment and regimen; Z86.19 Personal history of other infectious and parasitic diseases
CPT/HCPCS: 36415; 80048; 80053; 81003; 82010; 82947; 82962; 83036; 85027; 85660; 86593; 86780; 93005; 93010; J0735; U0003

== ENCOUNTER 2020-07-01 15:30 | Inpatient (IN) | payer OTHER ==
--- NOTE | 2020-07-01 17:00 | HP ---
CIWA Score Nausea/Vomitin-No Nausea/No Vomiting (CIWA 11--but meets criteria for coexisting medical condition (uncontrolled diabetes)) Muscle Tremors: 1-None Visible, but [place] Anxiety: 5 Agitation: 1-Slight > Activity Paroxysmal Sweats: No Perspiration Orientation: 2-Disoriented Date<2 days Tacttile Disturbances: 0-None Auditory Disturbances: 0-None Visual Disturbances: 0-None Headache: 2-Mild CIWA-Ar Total Score: 11 - Admission Criteria OASAS Guidelines: Admission for Medically Managed Detox: Requires at least one of the followin. CIWA greater than 12 2. Seizures within the past 24 hours 3. Delirium tremens within the past 24 hours 4. Hallucinations within the past 24 hours 5. Acute intervention needed for co occurring medical disorder 6. Acute intervention needed for co occurring psychiatric disorder 7. Severe withdrawal that cannot be handled at a lower level of care (continued vomiting, continued diarrhea, abnormal vital signs) requiring intravenous medication and/or fluids 8. Admitting History and Physical - Admission Chief Complaint: Alcohol detox History of Present Illness: CC: alcohol detox HPI: Mika Rosas is a 54 year old with recent diagnosis of diabetes, who presents for alcohol detox. He was admitted at [facility] from 06/01/20 - 06/05/20, for alcohol detox, was found to have elevated blood sugars (to 500s) and was advised to follow up with his primary care physician on discharge. He states that he did not follow up, and has not been taking Metformin (which was prescribed on his discharge). 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 Substance: Cocaine Amount: $100/day Date of Last use: Today (07/01/20) Date of first use: 30s Substance: Marijuana Amount: 1 joint/week Substance: Nicotine Amount: 1/2 pack per day Date of Last use: Today (07/01/20) PMH: Diabetes, hypertension PSH: None Psych: Depression, not on meds Social: Friend Legal: None History Source: Patient Limitations to Obtaining History: No Limitations - Past Surgical History Past Surgical History: Yes: None - Smoking History Smoking history: Current every day smoker Have you smoked in the past 12 months: Yes Aproximately how many cigarettes per day: 10 - Alcohol/Substance Use Hx Alcohol Use: Yes History of Substance Use: reports: Cocaine, Marijuana Date of Last Use: 06/01/20 - Social History Usual Living Arrangement: Yes: Alone ADL: Support Services Occupation: unemployed now History of Recent Travel: No Admission ROS S - HPI Chief Complaint: alcohol detox Allergies/Adverse Reactions: Allergies Allergy/AdvReac Type Severity Reaction Status Date / Time No Known Allergies Allergy Verified 07/01/20 17:16 Exam Limitations: No Limitations - Ebola screening Have you traveled outside of the country in the last 21 days: No Have you had contact with anyone from an Ebola affected area: No Have you been sick,other than usual withdrawal symptoms: No Do you have a fever: No - Review of Systems Constitutional: Unintentional Wgt. Loss EENT: denies: Eye Pain, Ear Pain, Nose Congestion Respiratory: denies: Cough, Shortness of Breath Cardiac: denies: Chest Pain GI: denies: Constipated, Diarrhea : reports: No Symptoms Reported Musculoskeletal: reports: No Symptoms Reported, Joint Pain (pain in bilateral knees) Integumentary: reports: No Symptoms Reported. denies: Rash Neuro: reports: Headache. denies: Seizure Endocrine: reports: No Symptoms Reported Hematology: reports: No Symptoms Reported Psychiatric: reports: Orientated x3 Patient History - Patient Medical History Hx Anemia: No Hx Asthma: No Hx Chronic Obstructive Pulmonary Disease (COPD): No Hx Cancer: No Hx Cardiac Disorders: No Hx Congestive Heart Failure: No Hx Hypertension: No Hx Hypercholesterolemia: No Hx Pacemaker: No HX Cerebrovascular Accident: No Hx Seizures: No Hx Dementia: No Hx Diabetes: No Hx Gastrointestinal Disorders: No Hx Liver Disease: No Hx Genitourinary Disorders: No Hx Sexually Transmitted Disorders: No Hx Renal Disease (ESRD): No Hx Thyroid Disease: No Hx Human Immunodeficiency Virus (HIV): No (last 04/2020 negative) Hx Hepatitis C: No Hx Depression: No Hx Suicide Attempt: No Hx Bipolar Disorder: No Hx Schizophrenia: No - Patient Surgical History Past Surgical History: No Hx Neurologic Surgery: No Hx Cataract Extraction: No Hx Cardiac Surgery: No Hx Lung Surgery: No Hx Breast Surgery: No Hx Breast Biopsy: No Hx Abdominal Surgery: No Hx Appendectomy: No Hx Cholecystectomy: No Hx Genitourinary Surgery: No Hx Section: No Hx Orthopedic Surgery: No Anesthesia Reaction: No - PPD History Date: 06/03/20 - Smoking Cessation Smoking history: Current every day smoker Have you smoked in the past 12 months: Yes Aproximately how many cigarettes per day: 10 Cigars Per Day: 0 Hx Chewing Tobacco Use: No Initiated information on smoking cessation: Yes 'Breaking Loose' booklet given: 07/01/20 - Substances abused Alcohol Substance route: Oral Frequency: Daily Amount used: liquor- 4 pts, beer- 2 six pk Age of first use: 25 Date of last use: 07/01/20 Cocaine Substance route: Inhalation Frequency: Daily Amount used: $60 worth Age of first use: 38 Date of last use: 06/30/20 Admission Physical Exam BHS - Physical General Appearance: Yes: Within Normal Limits, No Apparent Distress HEENTM: Yes: Within Normal Limits, Hearing grossly Normal, Normocephalic, Normal Voice, CARRI Respiratory: Yes: Within Normal Limits, Lungs Clear, Normal Breath Sounds, No Respiratory Distress Neck: Yes: Within Normal Limits Breast: Yes: Breast Exam Deferred Cardiology: Yes: Within Normal Limits, Regular Rhythm, Regular Rate, S1, S2 Abdominal: Yes: Within Normal Limits, Flat, Soft, Guarding, Other (diffuse tenderness to palpation) Genitourinary: Yes: Within Normal Limits Back: Yes: Within Normal Limits, Normal Inspection Musculoskeletal: Yes: Within Normal Limits, full range of Motion, Gait Steady Extremities: Yes: Within Normal Limits, Other (small healing cuts on shins from reported trip up the stairs 3 days ago) Neurological: Yes: Within Normal Limits, Alert, Normal Mood/Affect, Normal Response Integumentary: Yes: Within Normal Limits, Normal Color, Dry, Warm - Diagnostic (1) Alcohol dependence with uncomplicated withdrawal Current Visit: Yes Status: Acute (2) Cannabis abuse Current Visit: Yes Status: Acute (3) Cocaine dependence Current Visit: Yes Status: Acute Qualifiers: Substance use status: uncomplicated Qualified Code(s): F14.20 - Cocaine dependence, uncomplicated (4) Nicotine dependence Current Visit: Yes Status: Acute Qualifiers: Nicotine product type: cigarettes Substance use status: in withdrawal Qualified Code(s): F17.213 - Nicotine dependence, cigarettes, with withdrawal (5) DM type 2 (diabetes mellitus, type 2) Current Visit: No Status: Chronic Qualifiers: Diabetes mellitus senior living insulin use: without senior living use (6) History of hypertension Current Visit: No Status: Chronic (7) History of noncompliance with medical treatment Current Visit: No Status: Chronic Cleared for Admission BHS - Detox or Rehab [facility] Level of Care: Medically Managed Screened but not Admitted - Documentation of Visit Screened but not Admitted: No Breathalyzer - Breathalyzer Breathalyzer: 0 Urine Drug Screen - Test Device Lot number: [id number] Expiration date: 07/15/21 - Control Is test valid?: No - Results Drug screen NEGATIVE: No Urine drug screen results: GARRET-Cocaine, BZO-Benzodiazepines Inpatient Rehab Admission - Rehab Decision to Admit Inpatient rehab admission?: No
[2020-07-01 17:30] VITALS: BMI 23.6
[2020-07-01] MEDS ORDERED: MAG HYDROX/AL HYDROX/SIMETH 30 ML UNIT-DOSE CUP PO PRN (18:21)
[2020-07-01] MEDS ORDERED: ACETAMINOPHEN 325 MG TABLET (FP) PO PRN ×2 (18:21)
[2020-07-01] MEDS ORDERED: METHOCARBAMOL 500 MG TABLET PO PRN (18:21)
[2020-07-01] MEDS ORDERED: MAGNESIUM CITRATE 300 ML BOTTLE PO PRN (18:21)
[2020-07-01] MEDS ORDERED: MAGNESIUM HYDROX 2400MG/30ML ORAL SUSPENSION 30 ML CUP PO PRN (18:21)
[2020-07-01] MEDS ORDERED: BISMUTH SUBSALICYLATE 524 MG/30 ML UD PO PRN (18:21)
[2020-07-01] MEDS ORDERED: NICOTINE POLACRILEX 4 MG GUM BUC PRN (18:21)
[2020-07-01] MEDS ORDERED: IBUPROFEN 400 MG TABLET (FP) PO PRN (18:21)
[2020-07-01] MEDS ORDERED: MENTHOL/PHENOL 1 EACH UD MM PRN (18:21)
[2020-07-01] MEDS ORDERED: ONDANSETRON *ODT* 4 MG TABLET SL ONE (18:21)
--- NOTE | 2020-07-01 18:33 | PN ---
Teaching Attending Note Name of Resident: Eve Mccormick ATTENDING PHYSICIAN STATEMENT I saw and evaluated the patient. I reviewed the resident's note and discussed the case with the resident. I agree with the resident's findings and plan as documented. SUBJECTIVE: 54 y.o. male requesting detox from alcohol use PMHX : DM non- compliant w/ meds . OBJECTIVE: wnwd Vital Signs - 24 hr 07/01/20 17:17 Temperature 97.3 F L Pulse Rate 77 Respiratory 19 Rate Blood Pressure 140/91 ASSESSMENT AND PLAN: AUD - valium detox
[2020-07-01] MEDS: NICOTINE 21 MG/24 HOURS TOPICAL PATCH TD SCH (19:17)
[2020-07-01] MEDS: MELATONIN 5 MG TABLETS PO SCH (21:31)
[2020-07-01] MEDS: diazePAM 5 MG TABLET PO SCH (21:31)
[2020-07-01] MEDS: THIAMINE HCL 100 MG TABLET (FP) PO SCH (21:31)
[2020-07-01] MEDS: INSULIN SLIDING SCALE (NOVOLOG) 1 VIAL SQ SCH (21:32)
[2020-07-01] MEDS ORDERED: hydrOXYzine PAMOATE 25 MG CAPSULE (FP) PO SCH (22:00)
[2020-07-02] MEDS: diazePAM 5 MG TABLET PO SCH ×3 (06:28→21:49)
[2020-07-02] MEDS: INSULIN SLIDING SCALE (NOVOLOG) 1 VIAL SQ SCH ×4 (08:05→21:33)
--- NOTE | 2020-07-02 10:12 | PN ---
S CIWA - CIWA Score Nausea/Vomitin-No Nausea/No Vomiting Muscle Tremors: 3 Anxiety: 2 Agitation: 3 Paroxysmal Sweats: 2 Orientation: 0-Oriented Tacttile Disturbances: 0-None Auditory Disturbances: 0-None Visual Disturbances: 0-None Headache: 0-None Present CIWA-Ar Total Score: 10 S Progress Note (SOAP) Subjective: sweats shakes nausea Objective: 07/02/20 10:12 Vital Signs Temperature 98.2 F 07/02/20 06:45 Pulse Rate 88 07/02/20 06:45 Respiratory Rate 18 07/02/20 06:45 Blood Pressure 128/83 07/02/20 06:45 O2 Sat by Pulse Oximetry (%) 97 07/02/20 06:45 Laboratory Tests 07/01/20 07/01/20 07/01/20 18:33 19:13 21:27 POC Glucometer 263 263 227 07/02/20 06:27 POC Glucometer 273 rest of labs pending aaox3 lying in bed no acute distress Assessment: 07/02/20 10:12 withdrawals Plan: continue detox
[2020-07-02] MEDS: NICOTINE 21 MG/24 HOURS TOPICAL PATCH TD SCH (10:21)
[2020-07-02] MEDS: amLODIPine BESYLATE 10 MG TABLET (FP) PO SCH (10:21)
[2020-07-02] MEDS: PRENATAL VITAMINS W/ FOLIC ACID TABLET (FP) PO SCH (10:21)
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
[2020-07-02] MEDS: diazePAM 5 MG TABLET PO PRN (10:58)
[2020-07-02 13:01] LABS: HEMATOCRIT 43.6 % (35.4-49); HEMOGLOBIN 14.4 GM/dL (11.7-16.9); MCH 31.5 pg (25.7-33.7); MEAN CELL VOLUME 95.5 fl (80-96); MEAN PLT VOLUME 8.9 fl (7.5-11.1); PLATELET COUNT 220 K/MM3 (134-434); RBC 4.56 M/mm3 (4.00-5.60); RDW 14.7 % (11.9-15.9); WHITE BLOOD COUNT 6.4 K/mm3 (4.0-10.0)
[2020-07-02 13:13] LABS: CALCIUM 8.6 mg/dL (8.5-10.1); POTASSIUM 4.4 mmol/L (3.5-5.1)
[2020-07-02 13:19] LABS: ALBUMIN 3.2 g/dl (3.4-5.0); BILIRUBIN,TOTAL 0.8 mg/dL (0.2-1); BLOOD UREA NITROGEN 14.5 mg/dL (7-18); TOT PROT 6.2 g/dl (6.4-8.2)
[2020-07-02] MEDS: THIAMINE HCL 100 MG TABLET (FP) PO SCH (21:49)
[2020-07-02] MEDS: MELATONIN 5 MG TABLETS PO SCH (21:50)
[2020-07-03] MEDS: diazePAM 5 MG TABLET PO SCH ×2 (06:30→17:35)
[2020-07-03] MEDS: INSULIN SLIDING SCALE (NOVOLOG) 1 VIAL SQ SCH ×4 (07:56→21:25)
--- NOTE | 2020-07-03 10:24 | PN ---
S CIWA - CIWA Score Nausea/Vomitin-No Nausea/No Vomiting Muscle Tremors: None Anxiety: 1-Mildly Anxious Agitation: 1-Slight > Activity Paroxysmal Sweats: No Perspiration Orientation: 0-Oriented Tacttile Disturbances: 0-None Auditory Disturbances: 0-None Visual Disturbances: 0-None Headache: 0-None Present CIWA-Ar Total Score: 2 BHS Progress Note (SOAP) Subjective: feeling much better little anxiety Objective: 07/03/20 12:10 Vital Signs Temperature 97.1 F L 07/03/20 08:35 Pulse Rate 71 07/03/20 08:35 Respiratory Rate 18 07/03/20 08:35 Blood Pressure 151/93 07/03/20 08:35 O2 Sat by Pulse Oximetry (%) 97 07/03/20 05:45 aaox3 ambulating no acute distress Assessment: 07/03/20 12:10 mild withdrawals Plan: continue detox d/c in am
[2020-07-03] MEDS: amLODIPine BESYLATE 10 MG TABLET (FP) PO SCH (10:53)
[2020-07-03] MEDS: PRENATAL VITAMINS W/ FOLIC ACID TABLET (FP) PO SCH (10:53)
[2020-07-03] MEDS: NICOTINE 21 MG/24 HOURS TOPICAL PATCH TD SCH (10:53)
[2020-07-03] MEDS ORDERED: INSULIN SLIDING SCALE (NOVOLOG) 1 VIAL SQ ONE (11:44)
[2020-07-03] MEDS: THIAMINE HCL 100 MG TABLET (FP) PO SCH (21:56)
[2020-07-03] MEDS: MELATONIN 5 MG TABLETS PO SCH (21:56)
[2020-07-03] MEDS: diazePAM 5 MG TABLET PO PRN (21:58)
[2020-07-04] MEDS ORDERED: diazePAM 5 MG TABLET PO ONE (06:00)
[2020-07-04 06:26] VITALS: BP 142/98; PULSE 72; TEMP 99.1
[2020-07-04] MEDS: INSULIN SLIDING SCALE (NOVOLOG) 1 VIAL SQ SCH (07:43)
--- NOTE | 2020-07-04 08:48 | DS ---
[facility] Detox Discharge Summary Admission Date: 07/01/20 Discharge Date: 07/04/20 - History Present History: Alcohol Dependence, Cannabis Dependence, Cocaine Dependence - Physical Exam Results Vital Signs: Vital Signs Temperature 99.1 F 07/04/20 05:41 Pulse Rate 72 07/04/20 05:41 Respiratory Rate 20 07/04/20 05:41 Blood Pressure 142/98 07/04/20 05:41 O2 Sat by Pulse Oximetry (%) 99 07/04/20 05:41 Pertinent Admission Physical Exam Findings: Vital Signs Temperature 99.1 F 07/04/20 05:41 Pulse Rate 72 07/04/20 05:41 Respiratory Rate 20 07/04/20 05:41 Blood Pressure 142/98 07/04/20 05:41 O2 Sat by Pulse Oximetry (%) 99 07/04/20 05:41 Laboratory Tests 07/01/20 07/01/20 07/01/20 18:00 18:33 19:13 WBC RBC Hgb Hct MCV MCH MCHC RDW Plt Count MPV Sodium Potassium Chloride Carbon Dioxide Anion Gap BUN Creatinine Est GFR (CKD-EPI)AfAm Est GFR (CKD-EPI)NonAf POC Glucometer 263 263 Random Glucose Calcium Total Bilirubin AST ALT Alkaline Phosphatase Total Protein Albumin Syphilis Serology RPR Titer COVID-19 (TIARA) Not detected 07/01/20 07/02/20 07/02/20 21:27 06:27 08:30 WBC RBC Hgb Hct MCV MCH MCHC RDW Plt Count MPV Sodium Potassium Chloride Carbon Dioxide Anion Gap BUN Creatinine Est GFR (CKD-EPI)AfAm Est GFR (CKD-EPI)NonAf POC Glucometer 227 273 Random Glucose Calcium Total Bilirubin AST ALT Alkaline Phosphatase Total Protein Albumin Syphilis Serology Reactive A* RPR Titer COVID-19 (TIARA) 07/02/20 07/02/20 07/02/20 08:30 08:30 08:30 WBC 6.4 RBC 4.56 Hgb 14.4 Hct 43.6 MCV 95.5 MCH 31.5 MCHC 33.0 RDW 14.7 Plt Count 220 MPV 8.9 Sodium 139 Potassium 4.4 Chloride 106 Carbon Dioxide 25 Anion Gap 8 BUN 14.5 Creatinine 1.0 Est GFR (CKD-EPI)AfAm 99.15 Est GFR (CKD-EPI)NonAf 85.55 POC Glucometer Random Glucose 249 H Calcium 8.6 Total Bilirubin 0.8 AST 9 L ALT 14 Alkaline Phosphatase 70 Total Protein 6.2 L Albumin 3.2 L Syphilis Serology RPR Titer Reactive 1:1 H COVID-19 (TIARA) 07/02/20 07/02/20 07/02/20 10:53 16:44 21:12 WBC RBC Hgb Hct MCV MCH MCHC RDW Plt Count MPV Sodium Potassium Chloride Carbon Dioxide Anion Gap BUN Creatinine Est GFR (CKD-EPI)AfAm Est GFR (CKD-EPI)NonAf POC Glucometer 227 294 314 Random Glucose Calcium Total Bilirubin AST ALT Alkaline Phosphatase Total Protein Albumin Syphilis Serology RPR Titer COVID-19 (TIARA) 07/03/20 07/03/20 07/03/20 06:27 11:41 16:23 WBC RBC Hgb Hct MCV MCH MCHC RDW Plt Count MPV Sodium Potassium Chloride Carbon Dioxide Anion Gap BUN Creatinine Est GFR (CKD-EPI)AfAm Est GFR (CKD-EPI)NonAf POC Glucometer 318 346 295 Random Glucose Calcium Total Bilirubin AST ALT Alkaline Phosphatase Total Protein Albumin Syphilis Serology RPR Titer COVID-19 (TIARA) 07/03/20 07/04/20 21:01 06:30 WBC RBC Hgb Hct MCV MCH MCHC RDW Plt Count MPV Sodium Potassium Chloride Carbon Dioxide Anion Gap BUN Creatinine Est GFR (CKD-EPI)AfAm Est GFR (CKD-EPI)NonAf POC Glucometer 318 290 Random Glucose Calcium Total Bilirubin AST ALT Alkaline Phosphatase Total Protein Albumin Syphilis Serology RPR Titer COVID-19 (TIARA) aaox3 ambulating no acute distress lungs CTA - Treatment Hospital Course: Detox Protocol Followed, Detoxed Safely, Responded well, Discharged Condition Good, Rehab Referral Accepted - Medication Discharge Medications: Ambulatory Orders Amlodipine Besylate 10 mg PO DAILY #14 tablet 06/05/20 Insulin (Levemir) [Levemir Vial] 12 units SQ HS #1 units 06/05/20 - Diagnosis (1) Alcohol dependence with uncomplicated withdrawal Current Visit: Yes Status: Chronic (2) Cannabis abuse Current Visit: Yes Status: Chronic (3) Cocaine dependence Current Visit: Yes Status: Chronic Qualifiers: Substance use status: uncomplicated Qualified Code(s): F14.20 - Cocaine dependence, uncomplicated (4) Substance induced mood disorder Current Visit: Yes Status: Acute (5) Substance-induced sleep disorder Current Visit: Yes Status: Acute (6) Nicotine dependence Current Visit: Yes Status: Chronic Qualifiers: Nicotine product type: cigarettes Substance use status: uncomplicated Qualified Code(s): F17.210 - Nicotine dependence, cigarettes, uncomplicated (7) DM type 2 (diabetes mellitus, type 2) Current Visit: No Status: Chronic Qualifiers: Diabetes 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
== END 2020-07-04 08:38 | disposition home or self-care (01) | DRG 774 ==
LOC: YASAS 15:30 → Y6N 17:50
PROVIDERS: ADMIT Allergy & Immunology; ATTEND Allergy & Immunology
PROC: HZ2ZZZZ Detoxification Services for Substance Abuse Treatment (ICD-10-PCS; principal; 2020-07-01)
DX: F10.230 Alcohol dependence with withdrawal, uncomplicated (principal); F14.20 Cocaine dependence, uncomplicated; F12.10 Cannabis abuse, uncomplicated; F17.210 Nicotine dependence, cigarettes, uncomplicated; F19.282 Other psychoactive substance dependence with psychoactive substance-induced sleep disorder; F19.24 Other psychoactive substance dependence with psychoactive substance-induced mood disorder; F32.9 Major depressive disorder, single episode, unspecified; E11.65 Type 2 diabetes mellitus with hyperglycemia; Z79.4 Long term (current) use of insulin; I10 Essential (primary) hypertension; Z91.14 Patient's other noncompliance with medication regimen; Z56.0 Unemployment, unspecified; Z59.0 Homelessness
CPT/HCPCS: 36415; 80053; 82962; 85027; 86593; 86780; U0003

== ENCOUNTER 2020-08-21 16:17 | Inpatient (IN) | payer OTHER ==
[2020-08-21 17:08] VITALS: BMI 23.0
--- NOTE | 2020-08-21 20:48 | HP ---
CIWA Score Nausea/Vomitin Muscle Tremors: 2 Anxiety: 3 Agitation: 2 Paroxysmal Sweats: 2 Orientation: 1-Uncertain about Date Tacttile Disturbances: 0-None Auditory Disturbances: 0-None Visual Disturbances: 0-None Headache: 3-Moderate CIWA-Ar Total Score: 15 - Admission Criteria OASAS Guidelines: Admission for Medically Managed Detox: Requires at least one of the followin. CIWA greater than 12 2. Seizures within the past 24 hours 3. Delirium tremens within the past 24 hours 4. Hallucinations within the past 24 hours 5. Acute intervention needed for co occurring medical disorder 6. Acute intervention needed for co occurring psychiatric disorder 7. Severe withdrawal that cannot be handled at a lower level of care (continued vomiting, continued diarrhea, abnormal vital signs) requiring intravenous medication and/or fluids 8. Admitting History and Physical - Past Surgical History Past Surgical History: Yes: None - Smoking History Smoking history: Current every day smoker Have you smoked in the past 12 months: Yes Aproximately how many cigarettes per day: 10 - Alcohol/Substance Use Hx Alcohol Use: Yes History of Substance Use: reports: Cocaine, Marijuana Date of Last Use: 06/01/20 - Social History ADL: Support Services Occupation: unemployed now History of Recent Travel: No Admission [facility] Chief Complaint: Seeking admission to detox from alcohol Allergies/Adverse Reactions: Allergies Allergy/AdvReac Type Severity Reaction Status Date / Time No Known Allergies Allergy Verified 07/01/20 17:16 History of Present Illness: 55 years old male with a long history of alcohol dependence is seeking admission to detox. His last admission was for the period 07/01/2020 - 07/04/2020 and he reports that he was admitted at [facility] in the month of July,. He drinks 3 pints of Vodka and 2 x 6 packs of Budweiser beer daily. He has medical history of Diabetes Mellitus type 2, GERD and psych. history of depression. He denies suicidal ideation at this time. He works at [employer], lives with his family and denies any legal issues. 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 Exam Limitations: No Limitations - Ebola screening Have you traveled outside of the country in the last 21 days: No Have you had contact with anyone from an Ebola affected area: No Have you been sick,other than usual withdrawal symptoms: No Do you have a fever: No - Review of Systems Constitutional: Chills, Loss of Appetite, Malaise, Changes in sleep EENT: reports: No Symptoms Reported Respiratory: reports: No Symptoms reported Cardiac: reports: No Symptoms Reported GI: reports: Nausea, Poor Appetite, Poor Fluid Intake, Abdominal cramping : reports: No Symptoms Reported Musculoskeletal: reports: No Symptoms Reported Integumentary: reports: Dryness, Flushing Neuro: reports: Headache, Tremors Endocrine: reports: No Symptoms Reported Hematology: reports: No Symptoms Reported Psychiatric: reports: Depressed Other Systems: Reviewed and Negative Patient History - Patient Medical History Hx Anemia: No Hx Asthma: No Hx Chronic Obstructive Pulmonary Disease (COPD): No Hx Cancer: No Hx Cardiac Disorders: No Hx Congestive Heart Failure: No Hx Hypertension: Yes (Not on medication) Hx Hypercholesterolemia: No Hx Pacemaker: No HX Cerebrovascular Accident: No Hx Seizures: No Hx Dementia: No Hx Diabetes: Yes (Not on medication) Hx Gastrointestinal Disorders: No Hx Liver Disease: No Hx Genitourinary Disorders: No Hx Sexually Transmitted Disorders: No Hx Renal Disease (ESRD): No Hx Thyroid Disease: No Hx Human Immunodeficiency Virus (HIV): No (Negative April 2020) Hx Hepatitis C: No Hx Depression: Yes (Not on medication) Hx Suicide Attempt: No (Denies suicidal ideation at this time) Hx Bipolar Disorder: No Hx Schizophrenia: No - Patient Surgical History Past Surgical History: No Hx Neurologic Surgery: No Hx Cataract Extraction: No Hx Cardiac Surgery: No Hx Lung Surgery: No Hx Abdominal Surgery: No Hx Appendectomy: No Hx Cholecystectomy: No Hx Genitourinary Surgery: No Hx Orthopedic Surgery: No Anesthesia Reaction: No - PPD History Previous Implant?: Yes Documented Results: Negative w/proof Implanted On Prior [facility] Admission?: Yes Date: 06/03/20 PPD to be Administered?: No - Reproductive History Patient is a Female of Child Bearing Age (11 -55 yrs old): No (Male) - Smoking Cessation Smoking history: Current every day smoker Have you smoked in the past 12 months: Yes Aproximately how many cigarettes per day: 10 Cigars Per Day: 0 Hx Chewing Tobacco Use: No Initiated information on smoking cessation: Yes 'Breaking Loose' booklet given: 08/21/20 - Substance & Tx. History Substance Use Type: Alcohol, Cocaine Hx Substance Use Treatment: Yes ([facility]) - Substances abused Alcohol Substance route: Oral Frequency: Daily Amount used: 3 pints of Vodka and 2 x 6 packs of Budweiser beer Age of first use: 23 Date of last use: 08/21/20 [facility] - Vital Signs Vital Signs: Vital Signs - 24 hr 08/21/20 17:07 Temperature 98.3 F Pulse Rate 90 Respiratory 18 Rate Blood Pressure 123/82 - Physical General Appearance: Yes: Moderate Distress, Severe Distress, Anxious HEENTM: Yes: Within Normal Limits Respiratory: Yes: Lungs Clear, Normal Breath Sounds, No Respiratory Distress Neck: Yes: Within Normal Limits Breast: Yes: Breast Exam Deferred Cardiology: Yes: Tachycardia Abdominal: Yes: Normal Bowel Sounds Genitourinary: Yes: Within Normal Limits Back: Yes: Normal Inspection Musculoskeletal: Yes: Within Normal Limits Extremities: Yes: Tremors Neurological: Yes: Within Normal Limits Integumentary: Yes: Within Normal Limits Lymphatic: Yes: Within Normal Limits - Diagnostic (1) Depression Current Visit: Yes Status: Chronic Qualifiers: Depression Type: unspecified Qualified Code(s): F32.9 - Major depressive disorder, single episode, unspecified (2) Hypertension Current Visit: Yes Status: Chronic (3) Alcohol dependence with uncomplicated withdrawal Current Visit: Yes Status: Acute (4) Cocaine dependence Current Visit: Yes Status: Chronic Qualifiers: Substance use status: uncomplicated Qualified Code(s): F14.20 - Cocaine dependence, uncomplicated (5) DM type 2 (diabetes mellitus, type 2) Current Visit: Yes Status: Chronic Qualifiers: Diabetes mellitus intermediate insulin use: without intermediate use Diabetes mellitus complication status: without complication Qualified Code(s): E11.9 - Type 2 diabetes mellitus without complications (6) Nicotine dependence Current Visit: Yes Status: Chronic Qualifiers: Nicotine product type: cigarettes Substance use status: uncomplicated Qualified Code(s): F17.210 - Nicotine dependence, cigarettes, uncomplicated [facility] for [facility] - [facility]ox or [facility]hab [facility] Level of Care: Medically Managed Detox Regimen/Protocol: Librium Claeared for Rehab Admission: No Breathalyzer - Breathalyzer Breathalyzer: 0 Urine Drug Screen - Test Device Lot number: [id number] Expiration date: 02/20/22 - Control Is test valid?: Yes - Results Drug screen NEGATIVE: No Urine drug screen results: GARRET-Cocaine, BZO-Benzodiazepines Inpatient Rehab Admission - Rehab Decision to Admit Inpatient rehab admission?: No
[2020-08-21] MEDS ORDERED: MAG HYDROX/AL HYDROX/SIMETH 30 ML UNIT-DOSE CUP PO PRN (20:57)
[2020-08-21] MEDS ORDERED: METHOCARBAMOL 500 MG TABLET PO PRN (20:57)
[2020-08-21] MEDS ORDERED: chlordiazePOXIDE HCL 25 MG CAPSULE PO PRN (20:57)
[2020-08-21] MEDS ORDERED: NICOTINE POLACRILEX 2 MG GUM BUC PRN (20:57)
[2020-08-21] MEDS ORDERED: MAGNESIUM HYDROX 2400MG/30ML ORAL SUSPENSION 30 ML CUP PO PRN (20:57)
[2020-08-21] MEDS ORDERED: IBUPROFEN 400 MG TABLET (FP) PO PRN (20:57)
[2020-08-21] MEDS ORDERED: ONDANSETRON *ODT* 4 MG TABLET SL PRN (20:57)
[2020-08-21] MEDS ORDERED: BISMUTH SUBSALICYLATE 524 MG/30 ML UD PO PRN (20:57)
[2020-08-21] MEDS ORDERED: ACETAMINOPHEN 325 MG TABLET (FP) PO PRN ×2 (20:57)
[2020-08-21] MEDS ORDERED: MAGNESIUM CITRATE 300 ML BOTTLE PO PRN (20:57)
[2020-08-21] MEDS ORDERED: MENTHOL/PHENOL 1 EACH UD MM PRN (20:57)
--- OUTSIDE RECORDS SUMMARY | 2020-08-21 21:57 | XMS ---
:1965 Author Organization [facility] Support Name Relationship Address Phone UE, UNEMPLOYED Unavailable Unavailable Unavailable UE Unavailable Unavailable Unavailable BORA GUO [address] [phone] [place] [address] BORA GUO Spouse [address] [place] [address] Re-disclosure Warning The records that you are about to access may contain information from federally- assisted alcohol or drug abuse programs. If such information is present, then the following federally mandated warning applies: This information has been disclosed to you from records protected by federal confidentiality rules (42 CFR part 2). The federal rules prohibit you from making any further disclosure of this information unless further disclosure is expressly permitted by the written consent of the person to whom it pertains or as otherwise permitted by 42 CFR part 2. A general authorization for the release of medical or other information is NOT sufficient for this purpose. The Federal rules restrict any use of the information to criminally investigate or prosecute any alcohol or drug abuse patient.The records that you are about to access may contain highly sensitive health information, the redisclosure of which is protected by Article 27-F of the [facility] Public Health law. If you continue you may haveaccess to information: Regarding HIV / AIDS; Provided by facilities licensed or operated by the [facility] Office of Mental Health; or Provided by the [facility] Office for People With Developmental Disabilities. If such information is present, then the following [facility] mandated warning applies: This information has been disclosed to you from confidential records which are protected by state law. State law prohibits you from making any further disclosure of this information without the specific written consent of the person to whom it pertains, or as otherwise permitted by law. Any unauthorized further disclosure in violation of state law may result in a fine or mcfp sentence or both. A general authorization for the release of medical or other information is NOT sufficient authorization for further disclosure. Insurance Providers Payer name Policy type Policy ID Covered Covered alliance party's Policy P rosaline / Coverage alliance party ID relationship to [employer] ormation type [employer] [id number] SP [id number] FIRST Results ID Date Data Source [id number] 07/20/2020 02:45:00 AM EDT [facility] Name Value Range Interpretation Description Data Sup porting Code Source(s) Document(s ) 2018 Novel [facility] Coronavirus RNA Interpretation Unspecified Specimen Qualitative TIARA Probe Detection This lab was ordered by [facility] Jose Daniel Sykes-[id number] and reported by [facility] at [facility]. ID Date Data Source [id number] 07/08/2020 09:45:00 AM EDT [facility] Name Value Range Interpretation Description Data Sup porting Code Source(s) Document(s ) 2018 Novel [facility] Coronavirus RNA Interpretation Unspecified Specimen Qualitative TIARA Probe Detection This lab was ordered by [facility] Meta[place]um Hal Sykes-[id number] and reported by [facility] at [facility]. ID Date Data Source [id number] 07/01/2020 06:00:00 PM EDT [facility] Name Value Range Interpretation Description Data Sup porting Code Source(s) Document(s ) SARS [facility] coronavirus 2 RNA This lab was ordered by [facility] Bill Inter and reported by [facility]. ID Date Data Source [id number] 06/17/2020 11:30:00 AM EDT [facility] Name Value Range Interpretation Code Description Data Zaynab rce(s) Supporting Document(s ) SARS-COV-2 [facility] PCR This lab was ordered by and reported by [facility]. ID Date Data Source [id number] 06/17/2020 01:46:00 AM EDT [facility] Name Value Range Interpretation Code Description Data Zaynab rce(s) Supporting Document(s ) SARS-COV-2 [facility] PCR This lab was ordered by [facility] and re ported by [facility]. ID Date Data Source [id number] 06/01/2020 11:40:00 PM EDT [facility] Name Value Range Interpretation Description Data Sup porting Code Source(s) Document(s ) SARS [facility] coronavirus 2 RNA This lab was ordered by [facility] Bill Inter and reported by [facility]. Procedure
[2020-08-21] MEDS: MELATONIN 5 MG TABLETS PO SCH (22:53)
[2020-08-21] MEDS: THIAMINE HCL 100 MG TABLET (FP) PO SCH (22:53)
[2020-08-21] MEDS: chlordiazePOXIDE HCL 25 MG CAPSULE PO SCH (22:55)
[2020-08-22] MEDS: chlordiazePOXIDE HCL 25 MG CAPSULE PO SCH ×4 (06:57→22:11)
[2020-08-22 10:29] LABS: HEMATOCRIT 43.3 % (35.4-49); HEMOGLOBIN 14.7 GM/dL (11.7-16.9); MCH 32.2 pg (25.7-33.7); MCHC 33.9 g/dl (32.0-35.9); MEAN CELL VOLUME 94.8 fl (80-96); MEAN PLT VOLUME 8.2 fl (7.5-11.1); PLATELET COUNT 222 K/MM3 (134-434); RBC 4.57 M/mm3 (4.00-5.60); RDW 13.7 % (11.9-15.9); WHITE BLOOD COUNT 7.6 K/mm3 (4.0-10.0)
[2020-08-22 10:36] LABS: ALBUMIN 0.6 g/dl (3.4-5.0); BILIRUBIN,TOTAL 0.4 mg/dL (0.2-1); BLOOD UREA NITROGEN 13.9 mg/dL (7-18); CALCIUM 8.5 mg/dL (8.5-10.1); CREATININE 1.1 mg/dL (0.55-1.3); TOT PROT 6.2 g/dl (6.4-8.2)
[2020-08-22] MEDS: NICOTINE 14 MG/24 HOURS TOPICAL PATCH TD SCH (10:42)
[2020-08-22] MEDS: PRENATAL VITAMINS W/ FOLIC ACID TABLET (FP) PO SCH (10:42)
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
[2020-08-22] MEDS: metFORMIN HCL 500 MG TABLET (FP) PO SCH (16:56)
[2020-08-22] MEDS: INSULIN (NOVOLOG) ASPART 100 UNITS/ML 10ML VIAL SQ SCH (16:58)
[2020-08-22] MEDS ORDERED: INSULIN SLIDING SCALE (NOVOLOG) 1 VIAL SQ ONE (17:44)
[2020-08-22] MEDS ORDERED: MASKS NR ONE (19:43)
[2020-08-22] MEDS: THIAMINE HCL 100 MG TABLET (FP) PO SCH (22:11)
[2020-08-22] MEDS: QUEtiapine FUMARATE 50 MG TABLET PO SCH (22:11)
[2020-08-22] MEDS: MELATONIN 5 MG TABLETS PO SCH (22:12)
[2020-08-23] MEDS: metFORMIN HCL 500 MG TABLET (FP) PO SCH ×2 (06:11→17:00)
[2020-08-23] MEDS: chlordiazePOXIDE HCL 25 MG CAPSULE PO SCH ×4 (06:12→22:18)
[2020-08-23] MEDS ORDERED: INSULIN (NOVOLOG) ASPART 100 UNITS/ML 10ML VIAL ONE (07:08)
[2020-08-23] MEDS: INSULIN (NOVOLOG) ASPART 100 UNITS/ML 10ML VIAL SQ SCH ×3 (07:12→17:00)
[2020-08-23] MEDS: amLODIPine BESYLATE 10 MG TABLET (FP) PO SCH (10:58)
[2020-08-23] MEDS: NICOTINE 14 MG/24 HOURS TOPICAL PATCH TD SCH (12:28)
[2020-08-23] MEDS: PRENATAL VITAMINS W/ FOLIC ACID TABLET (FP) PO SCH (12:28)
--- NOTE | 2020-08-23 14:14 | PN ---
S CIWA - CIWA Score Nausea/Vomitin-No Nausea/No Vomiting Muscle Tremors: 3 Anxiety: 3 Agitation: 3 Paroxysmal Sweats: 2 Orientation: 0-Oriented Tacttile Disturbances: 0-None Auditory Disturbances: 0-None Visual Disturbances: 0-None Headache: 0-None Present CIWA-Ar Total Score: 11 [facility] Progress Note (SOAP) Subjective: sweats body aches irritable agitation Objective: 08/22/20 14:15 Vital Signs (72 hours) 08/21/20 08/21/20 08/22/20 17:07 21:50 06:00 Temperature 98.3 F 97.1 F L 97.7 F Pulse Rate 90 73 63 Respiratory 18 18 18 Rate Blood Pressure 123/82 139/99 127/88 O2 Sat by Pulse 97 99 Oximetry (%) 08/22/20 08/22/20 08/22/20 08:56 13:01 17:04 Temperature 98.8 F 97.8 F 97.8 F Pulse Rate 73 98 H 75 Respiratory 18 18 18 Rate Blood Pressure 127/80 129/91 141/87 O2 Sat by Pulse 98 Oximetry (%) 08/22/20 08/23/20 08/23/20 20:50 06:45 08:51 Temperature 98.7 F 96.4 F L 97.6 F Pulse Rate 91 H 74 83 Respiratory 16 20 16 Rate Blood Pressure 129/92 123/79 112/64 O2 Sat by Pulse 99 98 99 Oximetry (%) Laboratory Tests 08/21/20 08/21/20 08/21/20 07:00 07:00 21:20 WBC RBC Hgb Hct MCV MCH MCHC RDW Plt Count MPV Sodium Potassium Chloride Carbon Dioxide Anion Gap BUN Creatinine Est GFR (CKD-EPI)AfAm Est GFR (CKD-EPI)NonAf POC Glucometer Random Glucose Calcium Total Bilirubin AST ALT Alkaline Phosphatase Total Protein Albumin Syphilis Serology Reactive A* RPR Titer Reactive 1:1 H COVID-19 (TIARA) Not detected 08/21/20 08/22/20 08/22/20 22:52 06:57 07:00 WBC 7.6 RBC 4.57 Hgb 14.7 Hct 43.3 MCV 94.8 MCH 32.2 MCHC 33.9 RDW 13.7 Plt Count 222 MPV 8.2 Sodium Potassium Chloride Carbon Dioxide Anion Gap BUN Creatinine Est GFR (CKD-EPI)AfAm Est GFR (CKD-EPI)NonAf POC Glucometer 248 219 Random Glucose Calcium Total Bilirubin AST ALT Alkaline Phosphatase Total Protein Albumin Syphilis Serology RPR Titer COVID-19 (TIARA) 08/22/20 08/22/20 08/23/20 07:00 16:53 06:06 WBC RBC Hgb Hct MCV MCH MCHC RDW Plt Count MPV Sodium 140 Potassium 4.0 Chloride 106 Carbon Dioxide 28 Anion Gap 5 L BUN 13.9 Creatinine 1.1 Est GFR (CKD-EPI)AfAm 87.74 Est GFR (CKD-EPI)NonAf 75.70 POC Glucometer 276 242 Random Glucose 199 H Calcium 8.5 Total Bilirubin 0.4 AST 7 L ALT 15 Alkaline Phosphatase 69 Total Protein 6.2 L Albumin 0.6 L Syphilis Serology RPR Titer COVID-19 (TIARA) 08/23/20 11:00 WBC RBC Hgb Hct MCV MCH MCHC RDW Plt Count MPV Sodium Potassium Chloride Carbon Dioxide Anion Gap BUN Creatinine Est GFR (CKD-EPI)AfAm Est GFR (CKD-EPI)NonAf POC Glucometer 144 Random Glucose Calcium Total Bilirubin AST ALT Alkaline Phosphatase Total Protein Albumin Syphilis Serology RPR Titer COVID-19 (TIARA) aaox3 lying in bed no acute distress labs noted Assessment: 08/22/20 14:15 withdrawals noted Plan: continue detox increase fluids glucerna with meals
--- NOTE | 2020-08-23 14:18 | PN ---
[facility] CIWA - CIWA Score Nausea/Vomitin-No Nausea/No Vomiting Muscle Tremors: 3 Anxiety: 2 Agitation: 2 Paroxysmal Sweats: 2 Orientation: 0-Oriented Tacttile Disturbances: 0-None Auditory Disturbances: 0-None Visual Disturbances: 0-None Headache: 0-None Present CIWA-Ar Total Score: 9 BHS Progress Note (SOAP) Subjective: sweats fatigue interrupted sleep Objective: 08/23/20 14:17 Vital Signs Temperature 97.6 F 08/23/20 08:51 Pulse Rate 83 08/23/20 08:51 Respiratory Rate 16 08/23/20 08:51 Blood Pressure 112/64 08/23/20 08:51 O2 Sat by Pulse Oximetry (%) 99 08/23/20 08:51 Laboratory Tests 08/21/20 08/21/20 08/21/20 07:00 07:00 21:20 WBC RBC Hgb Hct MCV MCH MCHC RDW Plt Count MPV Sodium Potassium Chloride Carbon Dioxide Anion Gap BUN Creatinine Est GFR (CKD-EPI)AfAm Est GFR (CKD-EPI)NonAf POC Glucometer Random Glucose Calcium Total Bilirubin AST ALT Alkaline Phosphatase Total Protein Albumin Syphilis Serology Reactive A* RPR Titer Reactive 1:1 H COVID-19 (TIARA) Not detected 08/21/20 08/22/20 08/22/20 22:52 06:57 07:00 WBC 7.6 RBC 4.57 Hgb 14.7 Hct 43.3 MCV 94.8 MCH 32.2 MCHC 33.9 RDW 13.7 Plt Count 222 MPV 8.2 Sodium Potassium Chloride Carbon Dioxide Anion Gap BUN Creatinine Est GFR (CKD-EPI)AfAm Est GFR (CKD-EPI)NonAf POC Glucometer 248 219 Random Glucose Calcium Total Bilirubin AST ALT Alkaline Phosphatase Total Protein Albumin Syphilis Serology RPR Titer COVID-19 (TIARA) 08/22/20 08/22/20 08/23/20 07:00 16:53 06:06 WBC RBC Hgb Hct MCV MCH MCHC RDW Plt Count MPV Sodium 140 Potassium 4.0 Chloride 106 Carbon Dioxide 28 Anion Gap 5 L BUN 13.9 Creatinine 1.1 Est GFR (CKD-EPI)AfAm 87.74 Est GFR (CKD-EPI)NonAf 75.70 POC Glucometer 276 242 Random Glucose 199 H Calcium 8.5 Total Bilirubin 0.4 AST 7 L ALT 15 Alkaline Phosphatase 69 Total Protein 6.2 L Albumin 0.6 L Syphilis Serology RPR Titer COVID-19 (TIARA) 08/23/20 11:00 WBC RBC Hgb Hct MCV MCH MCHC RDW Plt Count MPV Sodium Potassium Chloride Carbon Dioxide Anion Gap BUN Creatinine Est GFR (CKD-EPI)AfAm Est GFR (CKD-EPI)NonAf POC Glucometer 144 Random Glucose Calcium Total Bilirubin AST ALT Alkaline Phosphatase Total Protein Albumin Syphilis Serology RPR Titer COVID-19 (TIARA) aaox3 lying in bed no acute distress Assessment: 08/23/20 14:17 withdrawals Plan: continue detox increase fluids
[2020-08-23] MEDS ORDERED: INSULIN SLIDING SCALE (NOVOLOG) 1 VIAL SQ ONE (16:55)
[2020-08-23] MEDS: THIAMINE HCL 100 MG TABLET (FP) PO SCH (22:18)
[2020-08-23] MEDS: QUEtiapine FUMARATE 50 MG TABLET PO SCH (22:18)
[2020-08-23] MEDS: MELATONIN 5 MG TABLETS PO SCH (22:19)
[2020-08-24] MEDS ORDERED: chlordiazePOXIDE HCL 10 MG CAPSULE PO PRN
[2020-08-24] MEDS ORDERED: INSULIN SLIDING SCALE (NOVOLOG) 1 VIAL SQ ONE ×2 (06:43→17:09)
[2020-08-24] MEDS: metFORMIN HCL 500 MG TABLET (FP) PO SCH ×2 (06:44→16:59)
[2020-08-24] MEDS: chlordiazePOXIDE HCL 10 MG CAPSULE PO SCH ×3 (06:44→16:59)
[2020-08-24] MEDS: INSULIN (NOVOLOG) ASPART 100 UNITS/ML 10ML VIAL SQ SCH ×3 (06:46→17:14)
[2020-08-24] MEDS: amLODIPine BESYLATE 10 MG TABLET (FP) PO SCH (11:13)
[2020-08-24] MEDS: PRENATAL VITAMINS W/ FOLIC ACID TABLET (FP) PO SCH (11:14)
[2020-08-24] MEDS: NICOTINE 14 MG/24 HOURS TOPICAL PATCH TD SCH (11:14)
--- NOTE | 2020-08-24 15:07 | PN ---
S CIWA - CIWA Score Nausea/Vomitin-No Nausea/No Vomiting Muscle Tremors: 2 Anxiety: 2 Agitation: 2 Paroxysmal Sweats: 2 Orientation: 0-Oriented Tacttile Disturbances: 0-None Auditory Disturbances: 0-None Visual Disturbances: 0-None Headache: 0-None Present CIWA-Ar Total Score: 8 S Progress Note (SOAP) Subjective: Complaints anxiety, shakes,sweats, and chills. Objective: 08/24/20 15:07 Vital Signs 08/24/20 08/24/20 09:27 12:59 Temperature 97.9 F 97.2 F L Pulse Rate 73 83 Respiratory 18 18 Rate Blood Pressure 134/93 140/99 O2 Sat by Pulse 97 Oximetry (%) Laboratory Last Values WBC 7.6 K/mm3 (4.0-10.0) 08/22/20 07:00 RBC 4.57 M/mm3 (4.00-5.60) 08/22/20 07:00 Hgb 14.7 GM/dL (11.7-16.9) 08/22/20 07:00 Hct 43.3 % (35.4-49) 08/22/20 07:00 MCV 94.8 fl (80-96) 08/22/20 07:00 MCH 32.2 pg (25.7-33.7) 08/22/20 07:00 MCHC 33.9 g/dl (32.0-35.9) 08/22/20 07:00 RDW 13.7 % (11.9-15.9) 08/22/20 07:00 Plt Count 222 K/MM3 (134-434) 08/22/20 07:00 MPV 8.2 fl (7.5-11.1) 08/22/20 07:00 Sodium 140 mmol/L (136-145) 08/22/20 07:00 Potassium 4.0 mmol/L (3.5-5.1) 08/22/20 07:00 Chloride 106 mmol/L (98-107) 08/22/20 07:00 Carbon Dioxide 28 mmol/L (21-32) 08/22/20 07:00 Anion Gap 5 MMOL/L (8-16) L 08/22/20 07:00 BUN 13.9 mg/dL (7-18) 08/22/20 07:00 Creatinine 1.1 mg/dL (0.55-1.3) 08/22/20 07:00 Est GFR (CKD-EPI)AfAm 87.74 08/22/20 07:00 Est GFR (CKD-EPI)NonAf 75.70 08/22/20 07:00 POC Glucometer 214 UNITS (80-120) 08/24/20 06:39 Random Glucose 199 mg/dL (74-106) H 08/22/20 07:00 Calcium 8.5 mg/dL (8.5-10.1) 08/22/20 07:00 Total Bilirubin 0.4 mg/dL (0.2-1) 08/22/20 07:00 AST 7 U/L (15-37) L 08/22/20 07:00 ALT 15 U/L (13-61) 08/22/20 07:00 Alkaline Phosphatase 69 U/L (45-117) 08/22/20 07:00 Total Protein 6.2 g/dl (6.4-8.2) L 08/22/20 07:00 Albumin 0.6 g/dl (3.4-5.0) L 08/22/20 07:00 Syphilis Serology Reactive (NONREACTIVE) A* 08/21/20 07:00 RPR Titer Reactive 1:1 (NONREACTIVE) H 08/21/20 07:00 COVID-19 (TIARA) Not detected (Not Detected) 08/21/20 21:20 08/24/20 15:10 Labs noted with RPR 1:1, previously reactive. Assessment: 08/24/20 15:11 Patient seen and examined, alert and oriented x3, in acute respiratory distress. Full ROM, ambulatory in the unit without assistance. Skin warm to touch without lesions. withdrawal symptoms. Plan: Continue detox protocol.
--- NOTE | 2020-08-24 18:43 | DS ---
[facility] Detox Discharge Summary Admission Date: 08/21/20 Discharge Date: 08/24/20 (Pt left AMA) - History Present History: Alcohol Dependence Additional Comments: Pt left AMA. Pt did not complete the detox protocol. Pt states, "I just have to leave". Pt still c/o withdrawal symptoms. An attempt to let pt stay and complete the detox protocol failed. Pt is encouraged to follow-up with an outpatient CD program and also to follow-up with his pmd which he verbalized understanding. Pt is alert, oriented x3, in no acute respiratory distress, Full ROM, and ambulatory. Pertinent Past History: h/o HTN and alcohol use disorder. - Physical Exam Results Vital Signs: Vital Signs Temperature 97.2 F L 08/24/20 12:59 Pulse Rate 83 08/24/20 12:59 Respiratory Rate 18 08/24/20 12:59 Blood Pressure 140/99 08/24/20 12:59 O2 Sat by Pulse Oximetry (%) 97 08/24/20 12:59 Vital Signs 08/24/20 08/24/20 12:59 16:51 Temperature 97.2 F L 97.1 F L Pulse Rate 83 85 Respiratory 18 16 Rate Blood Pressure 140/99 145/95 O2 Sat by Pulse 97 97 Oximetry (%) Laboratory Last Values WBC 7.6 K/mm3 (4.0-10.0) 08/22/20 07:00 RBC 4.57 M/mm3 (4.00-5.60) 08/22/20 07:00 Hgb 14.7 GM/dL (11.7-16.9) 08/22/20 07:00 Hct 43.3 % (35.4-49) 08/22/20 07:00 MCV 94.8 fl (80-96) 08/22/20 07:00 MCH 32.2 pg (25.7-33.7) 08/22/20 07:00 MCHC 33.9 g/dl (32.0-35.9) 08/22/20 07:00 RDW 13.7 % (11.9-15.9) 08/22/20 07:00 Plt Count 222 K/MM3 (134-434) 08/22/20 07:00 MPV 8.2 fl (7.5-11.1) 08/22/20 07:00 Sodium 140 mmol/L (136-145) 08/22/20 07:00 Potassium 4.0 mmol/L (3.5-5.1) 08/22/20 07:00 Chloride 106 mmol/L (98-107) 08/22/20 07:00 Carbon Dioxide 28 mmol/L (21-32) 08/22/20 07:00 Anion Gap 5 MMOL/L (8-16) L 08/22/20 07:00 BUN 13.9 mg/dL (7-18) 08/22/20 07:00 Creatinine 1.1 mg/dL (0.55-1.3) 08/22/20 07:00 Est GFR (CKD-EPI)AfAm 87.74 08/22/20 07:00 Est GFR (CKD-EPI)NonAf 75.70 08/22/20 07:00 POC Glucometer 256 UNITS (80-120) 08/24/20 16:49 Random Glucose 199 mg/dL (74-106) H 08/22/20 07:00 Calcium 8.5 mg/dL (8.5-10.1) 08/22/20 07:00 Total Bilirubin 0.4 mg/dL (0.2-1) 08/22/20 07:00 AST 7 U/L (15-37) L 08/22/20 07:00 ALT 15 U/L (13-61) 08/22/20 07:00 Alkaline Phosphatase 69 U/L (45-117) 08/22/20 07:00 Total Protein 6.2 g/dl (6.4-8.2) L 08/22/20 07:00 Albumin 0.6 g/dl (3.4-5.0) L 08/22/20 07:00 Syphilis Serology Reactive (NONREACTIVE) A* 08/21/20 07:00 RPR Titer Reactive 1:1 (NONREACTIVE) H 08/21/20 07:00 COVID-19 (TIARA) Not detected (Not Detected) 08/21/20 21:20 Pertinent Admission Physical Exam Findings: withdrawal symptoms. - Treatment Hospital Course: Detox Protocol Followed - Medication Discharge Medications: Ambulatory Orders Amlodipine Besylate 10 mg PO DAILY #14 tablet 06/05/20 Insulin (Levemir) [Levemir Vial] 12 units SQ HS #1 units 06/05/20 Metformin HCl [Glucophage] 500 mg PO BID 08/21/20 - Diagnosis (1) Alcohol dependence with uncomplicated withdrawal Current Visit: Yes Status: Acute (2) Cocaine dependence Current Visit: Yes Status: Acute Qualifiers: Substance use status: uncomplicated Qualified Code(s): F14.20 - Cocaine dependence, uncomplicated (3) Hypertension Current Visit: Yes Status: Chronic - AMA Did Patient Leave Against Medical Advice: Yes
[2020-08-24 18:46] VITALS: BP 145/95; PULSE 85; TEMP 97.1
[2020-08-25] MEDS ORDERED: chlordiazePOXIDE HCL 10 MG CAPSULE PO SCH (05:00)
[2020-08-26] MEDS ORDERED: chlordiazePOXIDE HCL 10 MG CAPSULE PO ONE (05:00)
== END 2020-08-24 18:05 | disposition left against medical advice (07) | DRG 770 ==
LOC: YASAS 16:17 → Y6N 20:09
PROVIDERS: ADMIT Allergy & Immunology; ATTEND Allergy & Immunology
PROC: HZ2ZZZZ Detoxification Services for Substance Abuse Treatment (ICD-10-PCS; principal; 2020-08-21)
DX: F10.230 Alcohol dependence with withdrawal, uncomplicated (principal); F14.20 Cocaine dependence, uncomplicated; F12.20 Cannabis dependence, uncomplicated; F17.210 Nicotine dependence, cigarettes, uncomplicated; F19.282 Other psychoactive substance dependence with psychoactive substance-induced sleep disorder; F19.24 Other psychoactive substance dependence with psychoactive substance-induced mood disorder; F32.9 Major depressive disorder, single episode, unspecified; I10 Essential (primary) hypertension; E11.9 Type 2 diabetes mellitus without complications; K21.9 Gastro-esophageal reflux disease without esophagitis; Z99.89 Dependence on other enabling machines and devices
CPT/HCPCS: 36415; 80053; 82962; 85027; 86593; 86780; C9803; U0003

== ENCOUNTER 2023-12-03 09:42 | Inpatient (IN) | payer OTHER ==
[2023-12-03 10:18] VITALS: BMI 24.0
[2023-12-03] MEDS ORDERED: MAG HYDROX/AL HYDROX/SIMETH 30 ML UNIT-DOSE CUP PO PRN (12:11)
[2023-12-03] MEDS ORDERED: IBUPROFEN 600 MG TABLET (FP) PO PRN (12:11)
[2023-12-03] MEDS ORDERED: IBUPROFEN 400 MG TABLET (FP) PO PRN (12:11)
[2023-12-03] MEDS ORDERED: LOPERAMIDE HCL 2 MG CAPSULE PO PRN (12:11)
[2023-12-03] MEDS ORDERED: MAGNESIUM HYDROX 2400MG/30ML ORAL SUSPENSION 30 ML CUP PO PRN (12:11)
[2023-12-03] MEDS ORDERED: guaiFENesin 600 MG TABLET.ER (FP) PO PRN (12:11)
[2023-12-03] MEDS ORDERED: POLYETHYLENE GLYCOL (HEALTHYLAX) 3350 17 GM PACKET PO PRN (12:11)
[2023-12-03] MEDS ORDERED: BENZOCAINE/MENTHOL (CHLORASEPTIC ) LOZENGE MM PRN (12:11)
[2023-12-03] MEDS ORDERED: DOCUSATE SODIUM 100 MG CAPSULE (FP) PO PRN (12:11)
[2023-12-03] MEDS ORDERED: P-EPHED 60MG/TRIPROLIDI 2.5MG TABLET PO PRN (12:11)
[2023-12-03] MEDS ORDERED: NICOTINE POLACRILEX 2 MG LOZENGE BC PRN (12:11)
[2023-12-03] MEDS ORDERED: ACETAMINOPHEN 325 MG TABLET (FP) PO PRN (12:11)
[2023-12-03] MEDS ORDERED: BENZONATATE 200 MG CAPSULE PO PRN (12:11)
[2023-12-03] MEDS: INSULIN ASPART SLIDING SCALE (NOVOLOG) 1 VIAL SQ SCH ×3 (12:37→21:40)
[2023-12-03] MEDS ORDERED: TUBERCULIN PPD 5 TU/0.1ML SYRINGE (IN PATIENT USE ONLY) ID ONE (17:00)
[2023-12-03] MEDS ORDERED: INSULIN ASPART SLIDING SCALE (NOVOLOG) 1 VIAL SQ ONE (17:14)
[2023-12-03] MEDS ORDERED: TUBERCULIN PPD 5 TU/0.1ML VIAL ID ONE (17:19)
[2023-12-03] MEDS: MELATONIN 5 MG TABLETS PO SCH (21:38)
[2023-12-03] MEDS: THIAMINE HCL 100 MG TABLET (FP) PO SCH (21:38)
[2023-12-04] MEDS: INSULIN ASPART SLIDING SCALE (NOVOLOG) 1 VIAL SQ SCH ×4 (06:20→21:28)
[2023-12-04 10:39] LABS: HEMATOCRIT 44.3 % (35.4-49); HEMOGLOBIN 14.7 GM/dL (11.7-16.9); MCH 30.5 pg (25.7-33.7); MCHC 33.2 g/dl (32.0-35.9); MEAN PLT VOLUME 8.7 fl (7.5-11.1); PLATELET COUNT 132 10^3/uL (134-434); RBC 4.81 M/mm3 (4.00-5.60); RDW 13.6 % (11.9-15.9); WHITE BLOOD COUNT 3.7 K/mm3 (4.0-10.0)
[2023-12-04] MEDS: PRENATAL VITAMINS W/ FOLIC ACID TABLET (FP) PO SCH (10:39)
[2023-12-04 11:03] LABS: CHLORIDE 97 mmol/L (98-107); POTASSIUM 4.4 mmol/L (3.5-5.1); SODIUM 131 mmol/L (136-145)
[2023-12-04 11:06] LABS: ALBUMIN 2.9 g/dl (3.4-5.0); ANION GAP 7 mmol/L (4-13); BLOOD UREA NITROGEN 13.3 mg/dL (7-18); CALCIUM 8.7 mg/dL (8.5-10.1); CO2 27 mmol/L (21-32)
[2023-12-04 11:09] LABS: CREATININE 1.4 mg/dL (0.55-1.3); SGOT/AST 6 U/L (15-37); SGPT/ALT 17 U/L (13-61)
[2023-12-04 11:11] LABS: BILIRUBIN,TOTAL 0.4 mg/dL (0.2-1)
[2023-12-04 11:12] LABS: ALK PHOS 88 U/L (45-117)
[2023-12-04 11:17] LABS: GLUCOSE,RANDOM 636 mg/dL (74-106)
[2023-12-04 12:09] LABS: SYPHILIS W/ RPR CONF REACTIVE (NONREACTIVE)
[2023-12-04] MEDS ORDERED: glipiZIDE 5 MG TABLET (FP) ONE (16:05)
[2023-12-04] MEDS: sitaGLIPtin PHOSPHATE 50 MG TABLET PO SCH (16:09)
[2023-12-04] MEDS: amLODIPine BESYLATE 10 MG TABLET (FP) PO SCH (16:09)
[2023-12-04] MEDS: glipiZIDE 10 MG TABLET (FP) PO SCH (16:10)
[2023-12-04] MEDS: hydrOXYzine PAMOATE 25 MG CAPSULE (FP) PO PRN (21:27)
[2023-12-04] MEDS: MELATONIN 5 MG TABLETS PO SCH (21:27)
[2023-12-04] MEDS: THIAMINE HCL 100 MG TABLET (FP) PO SCH (21:27)
[2023-12-05] MEDS ORDERED: glipiZIDE 5 MG TABLET (FP) ONE ×2 (02:56→03:05)
[2023-12-05] MEDS: glipiZIDE 10 MG TABLET (FP) PO SCH (06:16)
[2023-12-05] MEDS: sitaGLIPtin PHOSPHATE 50 MG TABLET PO SCH (06:16)
[2023-12-05] MEDS: INSULIN ASPART SLIDING SCALE (NOVOLOG) 1 VIAL SQ SCH ×4 (06:23→21:09)
[2023-12-05] MEDS: amLODIPine BESYLATE 10 MG TABLET (FP) PO SCH (09:56)
[2023-12-05] MEDS: PRENATAL VITAMINS W/ FOLIC ACID TABLET (FP) PO SCH (09:56)
[2023-12-05 14:10] LABS: PH,URINE 5.5 (5.0-8.0); URINE APPEARANCE CLEAR; URINE BILIRUBIN NEGATIVE (NEGATIVE); URINE COLOR YELLOW; URINE GLUCOSE (UA) 3+ (NEGATIVE); URINE KETONE NEGATIVE (NEGATIVE); URINE LEUK ESTERASE NEGATIVE (NEGATIVE); URINE NITRITE NEGATIVE (NEGATIVE); URINE PROTEIN NEGATIVE (NEGATIVE); URINE UROBILINOGEN 0.2 mg/dL (0.2-1.0)
[2023-12-05] MEDS: MELATONIN 5 MG TABLETS PO SCH (21:08)
[2023-12-05] MEDS: THIAMINE HCL 100 MG TABLET (FP) PO SCH (21:08)
[2023-12-06] MEDS: hydrOXYzine PAMOATE 25 MG CAPSULE (FP) PO PRN (01:44)
[2023-12-06] MEDS: glipiZIDE 10 MG TABLET (FP) PO SCH (06:26)
[2023-12-06] MEDS: sitaGLIPtin PHOSPHATE 50 MG TABLET PO SCH (06:26)
[2023-12-06] MEDS: INSULIN ASPART SLIDING SCALE (NOVOLOG) 1 VIAL SQ SCH ×4 (07:51→21:50)
[2023-12-06] MEDS: PRENATAL VITAMINS W/ FOLIC ACID TABLET (FP) PO SCH (09:58)
[2023-12-06] MEDS: amLODIPine BESYLATE 10 MG TABLET (FP) PO SCH (09:58)
[2023-12-06] MEDS ORDERED: BISMUTH SUBSALICYLATE 524 MG/30 ML PO PRN (10:39)
[2023-12-06] MEDS ORDERED: NICOTINE 14 MG/24 HOURS TOPICAL PATCH TD PRN (10:39)
[2023-12-06] MEDS ORDERED: ONDANSETRON *ODT* 4 MG TABLET SL PRN (10:39)
[2023-12-06] MEDS ORDERED: NALOXONE HCL 0.4 MG/ML VIAL IM PRN (10:39)
[2023-12-06] MEDS ORDERED: NALOXONE HCL (KLOXXADO) 8 MG SPRAY NS PRN (10:39)
[2023-12-06] MEDS ORDERED: DICYCLOMINE HCL 10 MG CAPSULE PO PRN (10:39)
[2023-12-06] MEDS: cloNIDine HCL 0.1 MG TABLET PO SCH ×2 (11:23→21:51)
[2023-12-06] MEDS: THIAMINE HCL 100 MG TABLET (FP) PO SCH (21:48)
[2023-12-06] MEDS: SUVOREXANT 5 MG TABLET PO PRN (21:49)
[2023-12-07] MEDS: hydrOXYzine PAMOATE 25 MG CAPSULE (FP) PO PRN (01:29)
[2023-12-07] MEDS ORDERED: glipiZIDE 5 MG TABLET (FP) ONE (03:04)
[2023-12-07] MEDS: glipiZIDE 10 MG TABLET (FP) PO SCH (06:20)
[2023-12-07] MEDS: sitaGLIPtin PHOSPHATE 50 MG TABLET PO SCH (06:20)
[2023-12-07] MEDS ORDERED: INSULIN ASPART SLIDING SCALE (NOVOLOG) 1 VIAL SQ ONE (06:22)
[2023-12-07] MEDS: INSULIN ASPART SLIDING SCALE (NOVOLOG) 1 VIAL SQ SCH ×4 (06:22→21:24)
[2023-12-07] MEDS: PRENATAL VITAMINS W/ FOLIC ACID TABLET (FP) PO SCH (10:35)
[2023-12-07] MEDS: amLODIPine BESYLATE 10 MG TABLET (FP) PO SCH (10:35)
[2023-12-07] MEDS: cloNIDine HCL 0.1 MG TABLET PO SCH ×2 (10:35→21:24)
[2023-12-07] MEDS: THIAMINE HCL 100 MG TABLET (FP) PO SCH (21:24)
[2023-12-07] MEDS: SUVOREXANT 5 MG TABLET PO PRN (21:25)
[2023-12-08] MEDS ORDERED: glipiZIDE 5 MG TABLET (FP) ONE (03:05)
[2023-12-08] MEDS ORDERED: INSULIN ASPART SLIDING SCALE (NOVOLOG) 1 VIAL SQ ONE ×2 (06:11→11:45)
[2023-12-08] MEDS: INSULIN ASPART SLIDING SCALE (NOVOLOG) 1 VIAL SQ SCH ×4 (06:11→21:04)
[2023-12-08] MEDS: sitaGLIPtin PHOSPHATE 50 MG TABLET PO SCH (06:12)
[2023-12-08] MEDS: glipiZIDE 10 MG TABLET (FP) PO SCH (06:33)
[2023-12-08] MEDS: amLODIPine BESYLATE 10 MG TABLET (FP) PO SCH (10:12)
[2023-12-08] MEDS: cloNIDine HCL 0.1 MG TABLET PO SCH (10:12)
[2023-12-08] MEDS: PRENATAL VITAMINS W/ FOLIC ACID TABLET (FP) PO SCH (10:12)
[2023-12-08] MEDS ORDERED: cloNIDine HCL 0.1 MG TABLET PO PRN (11:51)
[2023-12-08] MEDS: THIAMINE HCL 100 MG TABLET (FP) PO SCH (21:03)
[2023-12-08] MEDS: hydrOXYzine PAMOATE 25 MG CAPSULE (FP) PO PRN (21:03)
[2023-12-08] MEDS: SUVOREXANT 5 MG TABLET PO PRN (21:03)
[2023-12-09] MEDS ORDERED: glipiZIDE 5 MG TABLET (FP) ONE (03:10)
[2023-12-09] MEDS: hydrOXYzine PAMOATE 25 MG CAPSULE (FP) PO PRN ×2 (03:47→22:26)
[2023-12-09] MEDS: INSULIN ASPART SLIDING SCALE (NOVOLOG) 1 VIAL SQ SCH ×4 (06:18→21:30)
[2023-12-09] MEDS ORDERED: INSULIN ASPART SLIDING SCALE (NOVOLOG) 1 VIAL SQ ONE ×2 (06:19→11:13)
[2023-12-09] MEDS: sitaGLIPtin PHOSPHATE 50 MG TABLET PO SCH (06:19)
[2023-12-09] MEDS: glipiZIDE 10 MG TABLET (FP) PO SCH (06:19)
[2023-12-09] MEDS: PRENATAL VITAMINS W/ FOLIC ACID TABLET (FP) PO SCH (10:49)
[2023-12-09] MEDS: amLODIPine BESYLATE 10 MG TABLET (FP) PO SCH (10:50)
[2023-12-09] MEDS: THIAMINE HCL 100 MG TABLET (FP) PO SCH (21:30)
[2023-12-09] MEDS ORDERED: SUVOREXANT 5 MG TABLET PO PRN (22:00)
[2023-12-10] MEDS ORDERED: glipiZIDE 5 MG TABLET (FP) ONE (03:06)
[2023-12-10] MEDS: INSULIN ASPART SLIDING SCALE (NOVOLOG) 1 VIAL SQ SCH (06:33)
[2023-12-10] MEDS: sitaGLIPtin PHOSPHATE 50 MG TABLET PO SCH (06:34)
[2023-12-10] MEDS ORDERED: INSULIN ASPART SLIDING SCALE (NOVOLOG) 1 VIAL SQ ONE (06:34)
[2023-12-10] MEDS: glipiZIDE 10 MG TABLET (FP) PO SCH (06:35)
[2023-12-10 07:06] VITALS: TEMP 98
[2023-12-10 09:03] VITALS: BP 108/69; PULSE 90; RESP 18
[2023-12-10] MEDS: PRENATAL VITAMINS W/ FOLIC ACID TABLET (FP) PO SCH (09:09)
[2023-12-10] MEDS: amLODIPine BESYLATE 10 MG TABLET (FP) PO SCH (09:09)
== END 2023-12-10 09:55 | disposition home or self-care (01) | DRG 772 ==
LOC: YASAS 09:42 → Y3W 12:25
PROVIDERS: ADMIT Allergy & Immunology; ATTEND Psychiatry & Neurology Pain Medicine
PROC: HZ42ZZZ Group Counseling for Substance Abuse Treatment, Cognitive-Behavioral (ICD-10-PCS; principal; 2023-12-03)
DX: F14.20 Cocaine dependence, uncomplicated (principal); F10.20 Alcohol dependence, uncomplicated; F17.210 Nicotine dependence, cigarettes, uncomplicated; F19.282 Other psychoactive substance dependence with psychoactive substance-induced sleep disorder; F32.A Depression, unspecified; G47.00 Insomnia, unspecified; I10 Essential (primary) hypertension; K21.9 Gastro-esophageal reflux disease without esophagitis; E11.9 Type 2 diabetes mellitus without complications; Z79.84 Long term (current) use of oral hypoglycemic drugs
CPT/HCPCS: 0241U-QW; 36415; 80053; 80307; 81003; 82140; 82652; 82962; 85027; 86593; 86780; 86803